=== PATIENT | male | born 1985 | race Caucasian/White ===

== ENCOUNTER 2017-08-12 20:02 | Emergency (ER) | payer OTHER, SELFPAY ==
[2017-08-12 20:28] VITALS: BP 158/91; PULSE 97; RESP 18; TEMP 36.6; O2SAT 97; BMI 32.1
--- NOTE | 2017-08-12 20:34 | CT_ITS ---
CT abdomen pelvis wo con CLINICAL INDICATION: Left flank pain, abdominal pain ITS.REASON: LEFT FLANK PAIN ORDERING PHYSICIAN: Star Boswell MD PATIENT AGE: 32 years COMPARISON: None TECHNIQUE: Axial images obtained with sagittal and coronal reformats. PROCEDURE: Oral Contrast: None IV Contrast: None . FINDINGS: No acute finding in the lung bases. Diffuse fatty liver. Mild splenomegaly at 15 cm. The gallbladder, pancreas, and adrenal glands are unremarkable. There is a 22 x 16 mm left renal calculus within the left renal pelvis at the ureteropelvic junction causing mild left-sided hydronephrosis. There is mild stranding of the left perinephric renal fat. There is some lobulation of the right kidney with scarring along the lower pole and mild prominence of the right renal pelvis and ureter but with no stones evident on the right. No intestinal obstruction or free air. Unremarkable appendix. No acute bony anomalies. Disc osteophyte complex is present at T12-L1 slightly eccentric toward the left. IMPRESSION: 1. 22 x 16 mm left ureteropelvic junction stone with mild left-sided hydronephrosis and stranding in the left perinephric renal fat. 2. Diffuse hepatic steatosis. 3. Disc osteophyte complex at T12-L1 slightly eccentric toward the left
[2017-08-12 20:55] LABS: Microscopic, Urine URINE MICROSCOPIC (MICROSCOPIC)
[2017-08-12 20:56] LABS: Basophils # 0.1 K/mm3 (0-0.2); Basophils % 0.5 % (0.1-2.0); Eosinophils # 0.1 K/mm3 (0.0-0.4); Eosinophils % 1.2 % (0.1-12.0); Hematocrit 48.3 % (42.0-52.0); Hemoglobin 16.4 g/dL (14.1-18.0); Lymphocytes # 1.9 K/mm3 (0.7-4.5); Lymphocytes % 16.3 K/mm3 (10-50); Mean Corpuscular Hemoglobin 28.2 pg (27.0-31.2); Mean Corpuscular Volume 83.1 fl (80-94); Mean Platelet Volume 6.8 fl (7.4-10.4); Monocytes # 0.7 K/mm3 (0.1-1.0); Monocytes % 6.1 % (1.7-9.3); Platelet Count 277 K/mm3 (142-424); Red Blood Count 5.81 M/mm3 (4.60-6.20); Red Cell Distribution Width 12.3 % (11.5-17.5); White Blood Count 11.9 K/mm3 (4.8-10.8)
[2017-08-12 21:09] LABS: Alanine Aminotransferase 105 U/L (12-78); Albumin Level 4.3 gm/dL (3.4-5.0); Albumin/Globulin Ratio 1.2 (1.1-1.8); Alkaline Phosphatase 136 U/L (46-116); Anion Gap 13.9 mEq/L (5-15); Aspartate Amino Transferase 42 U/L (15-37); Bilirubin,Total 0.8 mg/dL (0.2-1.0); Blood Urea Nitrogen 15 mg/dL (7-18); Calcium 9.3 mg/dL (8.5-10.1); Carbon Dioxide 29 mmol/L (21.0-32.0); Chloride 98 mmol/L (98-107); Creatinine Clearance Estimated 95 mL/min (0-300); Creatinine,Serum 1.81 mg/dL (0.70-1.30); Estimated Glomerular Filt Rate 44 ml/min (>60); GFR (African American) 53 ML/MIN (>60); Globulin 3.5 gm/dl (1.3-3.2); Glucose 147 mg/dL (74-106); Potassium 3.9 mmoL/L (3.5-5.1); Sodium 137 mmol/L (136-145); Total Protein,Serum 7.8 gm/dL (6.4-8.2)
[2017-08-12 21:10] LABS: Appearance,Urine CLEAR (Clear); Bilirubin,Urine Negative (Negative); Blood, Urine TRACE-I (Negative); Color,Urine YELLOW (Yellow); Glucose,Urine (UA) Negative (Negative); Ketones,Urine Negative (Negative); Leukocyte Esterase,Urine TRACE (Negative); Nitrate,Urine Negative (Negative); PH,Urine 6.5 (5.0-8.5); Protein,Urine Negative (Negative); Urobilinogen,Urine 0.2 EU/dl (0.2)
--- NOTE | 2017-08-12 21:12 | PC.NURSE ---
PATIENT REPORTS NO PAIN AT THIS TIME
[2017-08-12 21:44] LABS: Bacteria,Urine 1+ /lpf; Squamous Epithelial Cell,Urine Occasional #/hpf (0-5)
[2017-08-12 21:45] LABS: Mucus,Urine 1+ /lpf
--- NOTE | 2017-08-12 21:54 | HMH.EDUROGM ---
ED Disposition Clinical Impression: Renal colic on left side Disposition: Home, Self-Care Condition on Discharge: Good Instructions: Kidney Stones -- Adult Additional Instructions: call pcp and urology in am Referrals: Al Morales MD [Primary Care Provider] - Trent Torres MD [Staff Physician] - - Critical Care Critical Care Time: No Attestation: On 08/12/17, the high probability of a clinically significant, sudden or life threatening deterioration of the following system(s) required my full and direct attention, intervention and personal management. The time I documented below is in addition to time spent performing reported procedures but includes the following listed in this critical care notation. Medical Decision Making - Medical Records Medical records reviewed: Yes: I reviewed the patient's medical records. Vital Signs: 08/12/17 20:28 Temperature 97.8 F Temperature Source Oral Pulse Rate [Right Brachial] 97 H Respiratory Rate 18 Blood Pressure [Right Arm] 158/91 Blood Pressure Mean [Right Arm] 113 Blood Pressure Source [Right Arm] Automatic Cuff Blood Pressure Position [Right Arm] Sitting 02 Sat by Pulse Oximetry 97 Oxygen Delivery Method Room Air - Lab Data Lab results reviewed: Yes: I reviewed the patient's lab results. Lab Results 08/12/17 20:40: Urine Color Yellow, Urine Appearance Clear, Urine pH 6.5, Ur Specific [place] 1.010, Urine Protein Negative, Urine Glucose (UA) Negative, Urine Ketones Negative, Urine Blood Trace-i, Urine Nitrate Negative, Urine Bilirubin Negative, Urine Urobilinogen 0.2, Ur Leukocyte Esterase Trace, Urine RBC 10-20, Urine WBC 3-5, Ur Squamous Epith Cells Occasional, Urine Bacteria 1+, Urine Mucus 1+ 08/12/17 20:40: WBC 11.9 H, RBC 5.81, Hgb 16.4, Hct 48.3, MCV 83.1, MCH 28.2, MCHC 34.0, RDW 12.3, Plt Count 277, MPV 6.8 L, Neut % (Auto) 76.0, Lymph % (Auto) 16.3, [place] % (Auto) 6.1, Eos % (Auto) 1.2, Baso % (Auto) 0.5, Neut # (Auto) 9.0 H, Lymph # (Auto) 1.9, [place] # (Auto) 0.7, Eos # (Auto) 0.1, Baso # (Auto) 0.1 08/12/17 20:40: Sodium 137, Potassium 3.9, Chloride 98, Carbon Dioxide 29, Anion Gap 13.9, BUN 15, Creatinine 1.81 H, Estimated Creat Clear 95, Estimated GFR 44 L, Est GFR ( Amer) 53 L, Glucose 147 H, Calcium 9.3, Total Bilirubin 0.8, AST 42 H, ALT 105 H, Alkaline Phosphatase 136 H, Total Protein 7.8, Albumin 4.3, Globulin 3.5 H, Albumin/Globulin Ratio 1.2 Result diagrams: 08/12/17 20:40 08/12/17 20:40 Orders (Tests/Meds): ED MEDICATIONS Discontinued Medications Generic Name Dose Route Start Last Admin Trade Name Freq PRN Reason Stop Dose Admin Sodium Chloride 1,000 mls @ 999 mls/hr 08/12/17 20:45 08/12/17 20:40 Sod Chlor 0.9% 1000ml Bag IV 08/12/17 21:45 999 mls/hr .Q1H1M NETO Administration Ketorolac Tromethamine 30 mg 08/12/17 20:36 08/12/17 20:40 Toradol 30mg/Ml Vial IV 08/12/17 20:37 30 mg ONCE ONE Administration ORDERS Category Date Time Status CT abdomen pelvis wo con Stat Cat Scan 08/12/17 20:34 Taken - CT Data CT Scan: Abdomen, Pelvis Time Received: 21:[address] Reviewed: Yes: I have viewed the radiologist's interpretation Preliminary Findings: Abnormal (lt stone) - Marky Inquiry Pt receiving controlled substance: No Male Urogenital HPI - General Chief complaint: Abdominal Pain Stated complaint: sharp pain left side&back Time Seen by Provider: 08/12/17 21:54 Mode of Arrival: Ambulatory Source of Information: Patient, Medical Record Limitations: No Limitations Description of Symptoms (Recalled from ER Triage Doc. by RN): LEFT FLANK PAIN RADIATING TO LLQ AND GROIN - History of Present Illness HPI Narrative: pt with lt flank pain which started today Onset (ago): hour(s) Duration: intermittent Location: left flank Severity: moderate Quality: dull - Related Data Allergies Allergy/AdvReac Type Severity Reaction Status Date / Time No Known Allergies Allergy
--- NOTE | 2017-08-12 21:57 | ED_ITS ---
ED Disposition Clinical Impression: Renal colic on left side Disposition: Home, Self-Care Condition on Discharge: Good Instructions: Kidney Stones -- Adult Additional Instructions: call pcp and urology in am Referrals: Al Morales MD [Primary Care Provider] - Trent Torres MD [Staff Physician] - - Critical Care Critical Care Time: No Attestation: On 08/12/17, the high probability of a clinically significant, sudden or life threatening deterioration of the following system(s) required my full and direct attention, intervention and personal management. The time I documented below is in addition to time spent performing reported procedures but includes the following listed in this critical care notation. Medical Decision Making - Medical Records Medical records reviewed: Yes: I reviewed the patient's medical records. Vital Signs: 08/12/17 20:28 Temperature 97.8 F Temperature Source Oral Pulse Rate [Right Brachial] 97 H Respiratory Rate 18 Blood Pressure [Right Arm] 158/91 Blood Pressure Mean [Right Arm] 113 Blood Pressure Source [Right Arm] Automatic Cuff Blood Pressure Position [Right Arm] Sitting 02 Sat by Pulse Oximetry 97 Oxygen Delivery Method Room Air - Lab Data Lab results reviewed: Yes: I reviewed the patient's lab results. Lab Results 08/12/17 20:40: Urine Color Yellow, Urine Appearance Clear, Urine pH 6.5, Ur Specific [place] 1.010, Urine Protein Negative, Urine Glucose (UA) Negative, Urine Ketones Negative, Urine Blood Trace-i, Urine Nitrate Negative, Urine Bilirubin Negative, Urine Urobilinogen 0.2, Ur Leukocyte Esterase Trace, Urine RBC 10-20, Urine WBC 3-5, Ur Squamous Epith Cells Occasional, Urine Bacteria 1+ , Urine Mucus 1+ 08/12/17 20:40: WBC 11.9 H, RBC 5.81, Hgb 16.4, Hct 48.3, MCV 83.1, MCH 28.2, MCHC 34.0, RDW 12.3, Plt Count 277, MPV 6.8 L, Neut % (Auto) 76.0, Lymph % (Auto ) 16.3, [place] % (Auto) 6.1, Eos % (Auto) 1.2, Baso % (Auto) 0.5, Neut # (Auto) 9.0 H, Lymph # (Auto) 1.9, [place] # (Auto) 0.7, Eos # (Auto) 0.1, Baso # (Auto) 0.1 08/12/17 20:40: Sodium 137, Potassium 3.9, Chloride 98, Carbon Dioxide 29, Anion Gap 13.9, BUN 15, Creatinine 1.81 H, Estimated Creat Clear 95, Estimated GFR 44 L, Est GFR ( Amer) 53 L, Glucose 147 H, Calcium 9.3, Total Bilirubin 0.8, AST 42 H, ALT 105 H, Alkaline Phosphatase 136 H, Total Protein 7.8, Albumin 4.3, Globulin 3.5 H, Albumin/Globulin Ratio 1.2 Result diagrams: 08/12/17 20:40 08/12/17 20:40 Orders (Tests/Meds): ED MEDICATIONS Discontinued Medications Generic Name Dose Route Start Last Admin Trade Name Freq PRN Reason Stop Dose Admin Sodium Chloride 1,000 mls @ 999 mls/hr 08/12/17 20:45 08/12/17 20:40 Sod Chlor 0.9% 1000ml Bag IV 08/12/17 21:45 999 mls/hr .Q1H1M NETO Administration Ketorolac Tromethamine 30 mg 08/12/17 20:36 08/12/17 20:40 Toradol 30mg/Ml Vial IV 08/12/17 20:37 30 mg ONCE ONE Administration ORDERS Category Date Time Status CT abdomen pelvis wo con Stat Cat Scan 08/12/17 20:34 Taken - CT Data CT Scan: Abdomen, Pelvis Time Received: 21:[address] Reviewed: Yes: I have viewed the radiologist's interpretation Preliminary Findings: Abnormal (lt stone) - Marky Inquiry Pt receiving controlled substance: No Male Urogenital HPI - General Chief complai
[2017-08-12 22:08] VITALS: BP 151/89; PULSE 79; RESP 16; TEMP 36.6; O2SAT 97
== END 2017-08-12 22:09 | disposition home or self-care (01) ==
LOC: UTC 20:14 → ER 20:24
PROVIDERS: Emergency Provider Emergency Medicine; Family Provider Family Medicine; PCP Internal Medicine Adolescent Medicine
DX: N23 Unspecified renal colic (principal); R73.09 Other abnormal glucose
CPT/HCPCS: 74176; 80053; 81001; 85025; 96365; 96374; 96375; 99282

== ENCOUNTER 2017-09-24 09:05 | Day surgery (SDC) | payer OTHER, SELFPAY ==
[2017-09-23 14:42] VITALS: BMI 32.1
[2017-09-24 10:14] VITALS: BP 130/86; PULSE 66; RESP 18; TEMP 36.4; O2SAT 99
--- NOTE | 2017-09-24 14:16 | HMH.OPNOTE ---
Date of procedure: 09/24/17 Pre-op Diagnosis:: Renal calculus Post-op Diagnosis:: Same Procedure performed:: Flexible cystoscopy and left ureteral stent removal Surgeon:: Trent Torres MD Anesthesia: local Estimated blood loss (mL): 0 Clinical Note:: Patient had recent left PCNL and he presents today for cystoscopy and removal of left ureteral stent Operative findings:: Is placed in the supine position. The genital area was prepped and draped in standard fashion. Xylocaine jelly was instilled in the urethra. Flexible cystoscope was introduced. The urethra and prostate were unremarkable. The stent was visualized and grasped with the alligator forceps and removed without difficulty. Patient tolerated procedure well. Operative note:: As above Condition: stable Disposition: PACU Specimens:: None Complications:: None
[2017-09-24 15:37] VITALS: BP 156/99; PULSE 68; RESP 18; TEMP 36.7; O2SAT 99
[2017-09-24 15:38] VITALS: BP 156/99; PULSE 68; RESP 18; TEMP 36.7; O2SAT 99
== END 2017-09-24 11:25 | disposition home or self-care (01) ==
LOC: OUTP 09:06
PROVIDERS: Family Provider Family Medicine; PCP Internal Medicine Adolescent Medicine; Visit Provider Urology
PROC: (CPT 52310; principal; 2017-09-24 10:30)
DX: N20.0 Calculus of kidney (principal)
CPT/HCPCS: 52310

== ENCOUNTER → 2021-07-25 20:09 | Outpatient (CLI) | payer OTHER, SELFPAY | PROVIDERS: Visit Provider Nurse Practitioner Family | DX: U07.1 COVID-19 (principal) | CPT/HCPCS: C9803; U0003; U0005 ==

== ENCOUNTER 2023-09-14 05:08 | Emergency (ER) | payer BC, SELFPAY ==
--- NOTE | 2023-09-14 05:19 | CT_ITS ---
PROCEDURE INFORMATION: Exam: CT Abdomen And Pelvis With Contrast Exam date and time: 09/14/2023 5:32 AM Age: 38 years old Clinical indication: Fever and other: Dysuria; Additional info: Dysuria, fevers, n, HX nephrolithiasis ? pyelo TECHNIQUE: Imaging protocol: Computed tomography of the abdomen and pelvis with contrast. Radiation optimization: All CT scans at this facility use at least one of these dose optimization techniques: automated exposure control; mA and/or kV adjustment per patient size (includes targeted exams where dose is matched to clinical indication); or iterative reconstruction. Contrast material: ISOVUE; Contrast volume: 75 ml; Contrast route: IV; COMPARISON: ABDPELWO CT abdomen pelvis wo con 08/12/2017 8:47 PM FINDINGS: Lungs: Right lower lobe granuloma. Heart: Base of heart is unremarkable as visualized. Liver: Diffuse hepatic steatosis. Gallbladder and bile ducts: Normal. No calcified stones. No ductal dilation. Pancreas: Mild fatty atrophy of the pancreas. Spleen: Benign calcified splenic granulomas noted. Adrenal glands: Normal. No mass. Kidneys and ureters: There is asymmetric left perinephric stranding. Subtle regions of left upper and left lower renal pole wedge like hypodensities are noted. Similar-appearing regions of cortical atrophy of the right lower renal pole are noted. Similar dilation of the right renal pelvis is noted. On today's examination there is slight thickening of the urothelium of the right renal pelvis. New from prior comparison on 08/12/2017 is a right lower renal pole nonobstructive nephrolith. Stomach and bowel: Unremarkable. No obstruction. No mucosal thickening. Appendix: No evidence of appendicitis. Intraperitoneal space: Unremarkable. No free air. No significant fluid collection. Vasculature: Normal variant celiac/SMA arterial anatomy. Lymph nodes: Unremarkable. No enlarged lymph nodes. Urinary bladder: Bladder is decompressed with circumferential wall thickening. Reproductive: Unremarkable as visualized. Bones/joints: [id number] degenerative changes of the visualized osseous structures. Soft tissues: Unremarkable. IMPRESSION: 1. Findings suggestive of left pyelonephritis without rim enhancing fluid collection. Correlate with laboratory findings. 2. Right nonobstructive lower renal pole nephrolithiasis. 3. Additional nonacute findings as above. COMMENTS: Consistent with the [employer]'s Incidental Findings Committee white paper (J Am Floyd Radiol 2018): Any incidental renal lesion less than 1 cm or classified as too small to characterize, or any incidental cystic renal lesion characterized as simple-appearing, is likely benign. No follow-up imaging is recommended for these lesions per consensus recommendations based on imaging criteria.
--- NOTE | 2023-09-14 05:22 | ED_ITS ---
Discharge Plan Disposition Patient Disposition: Home, Self-Care Condition: Good Prescriptions Prescriptions: New ciprofloxacin HCl [Cipro] 500 mg tablet 500 mg PO Q12H Qty: 20 0RF ondansetron 4 mg tablet,disintegrating 4 mg PO Q8H PRN (Reason: nausea and vomiting) Qty: 12 0RF Referrals Follow up/Referrals: Asif Newman MD [Primary Care Provider] - See instructions Activity Restrictions/Add. Instructions Additional Instructions/Restrictions: Take ciprofloxacin antibiotic as prescribed and you can take Zofran for any nausea or vomiting. You can continue to take Tylenol and Motrin for fevers and follow-up closely with your primary care provider for continued management. If your symptoms worsen, you continue to have fevers, he cannot tolerate oral intake or any other concerns arise please do not hesitate to return to the emergency department. Clinical Impressions Clinical Impression: Acute pyelonephritis Instructions Patient Instructions: DI for Urinary Tract Infection (UTI), DI for Urinary Tract Infection in Children Discharge ED Provider: Rhoda Thompson Adult HPI General Chief complaint: Urogenital-Male Stated complaint: 105.8 fever, sweats, chills, cloudy urine Time Seen by Provider: 09/14/23 05:12 History of Present Illness HPI narrative: Patient is a 38-year-old male with past medical history nephrolithiasis and anxiety presenting with dysuria, fevers, chills. Patient states that his symptoms started yesterday. He has had fever to 105 reportedly for which he has been taking Tylenol and Motrin at home last dose was 1 hour prior to arrival. Patient does note he has dysuria during this time and has had cloudy urine for the past couple of weeks, has a history of nephrolithiasis requiring urological intervention 5 years ago and wonders if he could have a kidney stone though he denies any flank pain. He woke up nauseated and with diaphoresis this morning prompting presentation. His family at bedside does note that he has had a cough but he denies any congestion or known sick contacts, chest pain, shortness of breath. Related Data Previous Rx's Medication Instructions Recorded ciprofloxacin HCl 500 mg tablet 500 mg PO Q12H #20 tabs 09/14/23 (Cipro) ondansetron 4 mg disintegrating 4 mg PO Q8H PRN nausea and 09/14/23 tablet vomiting #12 tabs Allergies Allergy/AdvReac Type Severity Reaction Status Date / Time No Known Allergies Allergy Verified 05/31/23 12:11 [facility] Disclaimer: The information contained in this section may have been updated after the patient was seen, as this information can be updated by other users. Medical History (Updated 09/14/23 @ 06:45 by Rhoda Thompson MD) Generalized anxiety disorder History of kidney stones Hypertension Surgical History History of tonsillectomy Social History Smoking Status: Never smoker how long ago did patient quit smokin years ago; moved to a vape second hand exposure: No alcohol intake: current counseling given: No substance use type: denies use current occupational status: employed Travel in the last 8 weeks: None adopted: No caregiver/support person: No foster care: No household members: family housing: house lives independently: Yes marital status: number of children: 3 number of grandchildren: 0 education level: high school service: No skilled nursing: No current occupation: at the [employer] Hx Recent Travel: No sexually active: Yes working smoke detector in home: Yes fire extinguisher in home: Yes carbon monox detector in home: No firearms in home: Yes firearms unloaded and locked: Yes ROS Obtained: Yes Systems reviewed as appropriate & no additional complaints except as documented Physical Exam General General appearance: alert, in no apparent distress and other (Diaphoretic) Head Head exam: atraumatic and normocephalic Eye Eye exam: Present PERRL and EOMI Chest Chest inspection: Present normal inspection and symmetric chest wall rise Respiratory Respiratory exam: Present normal lung sounds bilaterally; Absent respiratory distress Cardiovascular Cardiovascular exam: Present regular rate and normal rhythm Abdominal Exam Abdominal exam: Present soft and other (No CVA tenderness); Absent distention or tenderness Extremities Exam Extremities exam: Present normal inspection Neurological Exam Neurological exam: Present alert and oriented X3 Skin Skin exam: Present dry, normal color and diaphoresis; Absent rash or cyanosis Medical Decision Making Medical Records Medical records reviewed: Yes I reviewed the patient's medical records. Marky Inquiry Pt receiving controlled substance: No Vital Signs: 09/14/23 05:30 09/14/23 05:45 09/14/23 06:00 Temperature 98.6 F Temperature Source Oral Pulse Rate 95 H 90 Pulse Rate [Left Radial] 120 H Respiratory Rate 18 19 Blood Pressure 154/77 H 133/74 Blood Pressure [Right Arm] 162/91 H Blood Pressure Mean 102 92 Blood Pressure Mean [Right Arm] 114 02 Sat by Pulse Oximetry 96 95 92 L Oxygen Delivery Method Room Air Room Air 09/14/23 06:30 Temperature Temperature Source Pulse Rate 88 Pulse Rate [Left Radial] Respiratory Rate 18 Blood Pressure 130/82 Blood Pressure [Right Arm] Blood Pressure Mean 95 Blood Pressure Mean [Right Arm] 02 Sat by Pulse Oximetry 93 L Oxygen Delivery Method Room Air Lab Data Lab results reviewed: Yes I reviewed the patient's lab results. Lab Results 09/14/23 05:16: Urine Color Yellow, Urine Appearance Cloudy, Urine pH 6.0, Ur Specific [place] 1.020, Urine Protein 1+, Urine Glucose (UA) 3+, Urine Ketones 1+, Urine Blood 2+, Urine Nitrate Positive, Urine Bilirubin Negative, Urine Urobilinogen 1.0, Ur Leukocyte Esterase 1+ A, Urine RBC Occasional, Urine WBC Tntc, Ur Squamous Epith Cells 3-5, Urine Bacteria 2+, Hyaline Casts Occasional 09/14/23 05:25: WBC 15.1 H, RBC 5.73, Hgb 16.9, Hct 50.3, MCV 87.7, MCH 29.5, MCHC 33.7, RDW 13.1, Plt Count 232, MPV 7.4, Neut % (Auto) 89.4 H, Lymph % (Auto) 4.8 L, [place] % (Auto) 4.1, Eos % (Auto) 1.0, Baso % (Auto) 0.7, Neut # (Auto) 13.5 H, Lymph # (Auto) 0.7, [place] # (Auto) 0.6, Eos # (Auto) 0.2, Baso # (Auto) 0.1, Total Counted 100, Neutrophils % (Manual) 90 H, Lymphocytes % (Manual) 6 L, Monocytes % (Manual) 4, Platelet Estimate Normal, RBC Morphology Normal, Sodium 132 L, Potassium 3.7, Chloride 97 L, Carbon Dioxide 24, Anion Gap 14.7, BUN 14, Creatinine 1.40 H, Estimated Creat Clear 111, Estimated GFR 57 L, Est GFR ( Amer) 69, Glucose 315 H, Calcium 9.6, Total Bilirubin 2.1 H, A ST 66 H, ALT 78, Alkaline Phosphatase 164 H, Total Protein 7.3, Albumin 4.3, Globulin 3.0, Albumin/Globulin Ratio 1.4 09/14/23 05:44: SARS-CoV-2 (PCR) Not detected, Influenza A Untype (PCR) Not detected, Influenza Type B (PCR) Not detected 09/14/23 05:25 09/14/23 05:25 Orders (Tests/Meds): ED MEDICATIONS Generic Name Dose Route Start Last Admin Trade Name Freq PRN Reason Stop Dose Admin Sodium Chloride 10 ml 09/14/23 05:19 Sodium Chloride 0.9% 10ml Flush Syringe IV 10/14/23 05:18 NEEDED PRN Maintain IV Site Discontinued Medications Generic Name Dose Route Start Last Admin Trade Name Freq PRN Reason Stop Dose Admin Sodium Chloride 1,000 mls @ 999 mls/hr 09/14/23 05:30 09/14/23 05:37 Sod Chlor 0.9% 1000ml Bag IV 09/14/23 06:30 999 mls/hr .Q1H1M NETO Administration Ceftriaxone Sodium 1 gm/ 50 mls @ 100 mls/hr 09/14/23 05:45 09/14/23 05:50 Sodium Chloride IV 09/24/23 05:44 100 mls/hr Q24H NETO Administration Ceftriaxone Sodium 1 gm/ 50 mls @ 100 mls/hr 09/14/23 05:52 09/14/23 06:01 Sodium Chloride IV 09/14/23 06:14 Not Given ONCE ONE Iopamidol 75 ml 09/14/23 05:38 09/14/23 05:39 Iopamidol-370 (76%);100ml Bottle IV 09/14/23 05:39 75 ml ONCE ONE Administration Ketorolac Tromethamine 15 mg 09/14/23 05:19 09/14/23 05:37 Ketorolac 30mg/Ml Vial IV 09/14/23 05:20 15 mg ONCE ONE Administration Sodium Chloride 10 ml 09/14/23 05:38 09/14/23 05:39 Sodium Chloride 0.9% 10ml Syr (Rad Only) IV 09/14/23 05:39 10 ml ONCE ONE Administration ORDERS Category Date Time Status CT abdomen pelvis w con Stat Cat Scan 09/14/23 05:19 Completed Complete Blood Count Auto Diff Stat Lab 09/14/23 05:25 Completed Comprehensive Metabolic Panel Stat Lab 09/14/23 05:25 Completed Rapid PCR Covid and Flu A/B Stat Lab 09/14/23 05:44 Completed Urinalysis and Microscopic Stat Lab 09/14/23 05:16 Completed Urine Culture Stat Micro 09/14/23 05:16 Received Medical Decision Narrative: Patient is a 38-year-old male with past medical history nephrolithiasis 5 years ago and anxiety presenting with fevers, chills and dysuria. He does report some cloudy urine over the past couple of weeks but reports 1 day history of fevers, myalgias, dysuria with reported Tmax to 105. He is concerned that he may have a kidney stone again but denies any pain only dysuria. He does not have any CVA tenderness or abdominal tenderness on exam but is diaphoretic though he is afebrile and it is noted he took antipyretics 1 hour prior to arrival. He is otherwise hemodynamically stable though slightly tachycardic. He denies any cough or congestion but family at bedside does state he has had a cough. Will obtain labs and imaging for further evaluation considering his dysuria and history. UA does appear grossly infectious, CBC notable for leukocytosis to 15, CMP with creatinine slightly elevated to 1.4, glucose of 315 but anion gap within normal limits, bilirubin slightly elevated to 2.1, he is not having any right upper quadrant abdominal pain and feel this could be relative to nausea/decreased p.o. intake. He did have resolution of tachycardia after fluids and Toradol and CT was notable for left-sided uncomplicated pyelonephritis. Given hemodynamic stability, improvement after interventions and that he was given 1 g of Rocephin IV feel patient is appropriate for outpatient follow-up with prescription for ciprofloxacin and Zofran provided. Patient agreeable with plan and follow-up closely outpatient as well as given return precautions to which she is agreeable. Discharged in stable condition. Critical Care Critical Care Time Critical Care Time: No
[2023-09-14 05:30] VITALS: BP 162/91; PULSE 120; RESP 18; TEMP 37; O2SAT 96; BMI 30.8
[2023-09-14 05:30] LABS: Microscopic, Urine URINE MICROSCOPIC (MICROSCOPIC)
[2023-09-14 05:31] LABS: Appearance,Urine CLOUDY (Clear); Bilirubin,Urine Negative (Negative); Blood, Urine 2+ (Negative); Color,Urine YELLOW (Yellow); Glucose,Urine (UA) 3+ (Negative); Ketones,Urine 1+ (Negative); Leukocyte Esterase,Urine 1+ (Negative); Nitrate,Urine POSITIVE (Negative); Protein,Urine 1+ (Negative)
[2023-09-14 05:34] LABS: Basophils # 0.1 K/mm3 (0-0.2); Basophils % 0.7 % (0.1-2.0); Eosinophils # 0.2 K/mm3 (0.0-0.4); Hematocrit 50.3 % (42.0-52.0); Hemoglobin 16.9 g/dL (14.1-18.0); Lymphocytes # 0.7 K/mm3 (0.7-4.5); Lymphocytes % 4.8 % (10-50); Mean Corpuscular HGB Conc 33.7 g/dL (31.8-35.4); Mean Corpuscular Hemoglobin 29.5 pg (27.0-31.2); Mean Corpuscular Volume 87.7 fl (80-94); Mean Platelet Volume 7.4 fl (7.4-10.4); Monocytes # 0.6 K/mm3 (0.1-1.0); Monocytes % 4.1 % (1.7-9.3); Neutrophils # 13.5 K/mm3 (1.8-7.8); Neutrophils % 89.4 % (37.0-80.0); Platelet Count 232 K/mm3 (142-424); Red Blood Count 5.73 M/mm3 (4.60-6.20); Red Cell Distribution Width 13.1 % (11.5-17.5); White Blood Count 15.1 K/mm3 (4.8-10.8)
[2023-09-14 05:36] LABS: MANUAL DIFFERENTIAL MANUAL DIFFERENTIAL (MANUAL DIFF)
[2023-09-14] MEDS: KETOROLAC 30MG/ML VIAL 15 MG IV (05:37)
[2023-09-14] MEDS: 0.9 % SODIUM CHLORIDE 1000ML 1,000 ML 999 ML IV (05:37)
[2023-09-14] MEDS: SODIUM CHLORIDE 0.9% 10ML SYR (RAD ONLY) 10 ML IV (05:39)
[2023-09-14] MEDS: IOPAMIDOL-370 (76%);100ML BOTTLE 75 ML IV (05:39)
[2023-09-14 05:43] LABS: Bacteria,Urine 2+ /lpf; Hyaline Casts,Urine Occasional #/lpf (0); RBC,Urine Occasional #/hpf (0-3); WBC,Urine TNTC #/hpf (0-3)
[2023-09-14 05:45] VITALS: BP 154/77; PULSE 95; O2SAT 95
[2023-09-14 05:45] LABS: Lymphocytes % 6 % (10-50); Monocytes % 4 % (2-9); Neutrophils % 90 % (42-76); Platelet Estimate Normal; RBC Morphology Normal; Total Cells Counted 100
[2023-09-14 05:46] LABS: Coronavirus 19, PCR Not Detected (NotDetected); Influenza A, PCR Not Detected (NotDetected); Influenza B, PCR Not Detected (NotDetected)
[2023-09-14 05:47] LABS: Alanine Aminotransferase 78 U/L (12-78); Albumin Level 4.3 g/dl (3.5-5.0); Albumin/Globulin Ratio 1.4 (1.1-1.8); Alkaline Phosphatase 164 U/L (38-126); Anion Gap 14.7 mEq/L (5-15); Aspartate Amino Transferase 66 U/L (17-59); Bilirubin,Total 2.1 mg/dl (0.2-1.3); Blood Urea Nitrogen 14 mg/dl (9-20); Calcium 9.6 mg/dl (8.4-10.2); Carbon Dioxide 24 mmol/L (22.0-30.0); Chloride 97 mmol/L (98-107); Creatinine Clearance Estimated 111 mL/min (50-200); Estimated Glomerular Filt Rate 57 ml/min (>60); GFR (African American) 69 ML/MIN (>60); Glucose 315 mg/dl (74-100); Potassium 3.7 mmoL/L (3.5-5.1); Sodium 132 mmol/L (136-145); Total Protein,Serum 7.3 g/dl (6.3-8.2)
[2023-09-14] MEDS: CEFTRIAXONE 1 GM 1 GM in 0.9 % SODIUM CHLORIDE 50 ML IV (05:50)
[2023-09-14 06:00] VITALS: BP 133/74; PULSE 90; RESP 19; O2SAT 92
[2023-09-14 06:30] VITALS: BP 130/82; PULSE 88; RESP 18; O2SAT 93
[2023-09-14 06:49] VITALS: BP 130/82; PULSE 83; RESP 18; TEMP 37.2
== END 2023-09-14 06:54 | disposition home or self-care (01) ==
PROVIDERS: Emergency Provider Emergency Medicine; PCP Family Medicine
DX: N10 Acute pyelonephritis (principal); R50.9 Fever, unspecified; R33.0 Drug induced retention of urine; R05.9 Cough, unspecified; I10 Essential (primary) hypertension; F17.290 Nicotine dependence, other tobacco product, uncomplicated
CPT/HCPCS: 74177; 80053; 81001; 85007; 85025; 87086; 87636; 96361; 96365; 96375; 99285; J0696; Q9967

== ENCOUNTER 2023-09-15 03:16 | Observation (INO) | payer BC, SELFPAY ==
[2023-09-15] VITALS (12 sets, daily range): BP systolic 111–150; BP diastolic 64–89; PULSE 72–135; RESP 16–20; TEMP 36.6–37.1; O2SAT 95–99; BMI 30.8; BMI 28.9; BMI 29.0
[2023-09-15] MEDS: KETOROLAC 30MG/ML VIAL 15 MG IV ×3 (03:33→21:05)
[2023-09-15] MEDS: ACETAMINOPHEN 1,000MG/100ML VIAL 1000 MG IV (03:33)
[2023-09-15] MEDS: ONDANSETRON 4MG/2ML VIAL 4 MG IV (03:33)
--- NOTE | 2023-09-15 03:34 | ED_ITS ---
Discharge Plan Disposition Patient Disposition: Admitted Chief Complaint: Fever Prescriptions Prescriptions: No Action ciprofloxacin HCl [Cipro] 500 mg tablet 500 mg PO Q12H Qty: 20 0RF ondansetron 4 mg tablet,disintegrating 4 mg PO Q8H PRN (Reason: nausea and vomiting) Qty: 12 0RF Referrals Follow up/Referrals: Asif Newman MD [Primary Care Provider] - See instructions Clinical Impressions Clinical Impression: Acute pyelonephritis, Sepsis Discharge ED Provider: Alexis Wing General Adult HPI General Chief complaint: Fever Stated complaint: fever of 103 kidney infection Time Seen by Provider: 09/15/23 03:18 Mode of Arrival: Ambulatory Source of Information: Patient Limitations: No Limitations Description of Symptoms (Recalled from ER Triage Doc. by RN): Pt dx with kidney infection 09/13. Pt states he is still having a fever. Pt did not have a fever during triage. History of Present Illness HPI narrative: 38-year-old man history of numerous bladder and kidney infections as a child without over diagnosis or causative pathology presenting with fevers and vomiting. Patient was diagnosed with pyelonephritis early in the morning yesterday, 09/13 in the AM. Was given first dose of ceftriaxone, sent home with ciprofloxacin. Patient states that all day long, he has been unable to tolerate any p.o. intake, notes constant vomiting with any attempted p.o. intake. Also notes that he has been having a twinge every now and again, in his left flank. Patient has had fevers that are responsive to Motrin, has not been taking Tylenol. Urine is dark orange/red and is associated with dysuria. Unable to tolerate antibiotic or Zofran today. Presents for further medical evaluation Please note that above description of symptoms, in this electronic medical record under categorization of recalled from ER triage doctor by RN are reflective of an initial nursing assessment, however, is not reflective of my full history and physical exam that was personally taken and clarified. Consequentially, this preceding description of symptoms, which may include the patient's categorized chief complaint in the EMR, do not reflect my personal clinical impression, and the ultimate description of history of present illness and patient stated complaints should be deferred to this section of the note. Unless stated otherwise or congruent with this section of the note, additional signs, symptoms, or incongruence should be interpreted as inaccurate with my clinical impression. Related Data Previous Rx's Medication Instructions Recorded ciprofloxacin HCl 500 mg tablet 500 mg PO Q12H #20 tabs 09/14/23 (Cipro) ondansetron 4 mg disintegrating 4 mg PO Q8H PRN nausea and 09/14/23 tablet vomiting #12 tabs Allergies Allergy/AdvReac Type Severity Reaction Status Date / Time No Known Allergies Allergy Verified 05/31/23 12:11 [facility] Disclaimer: The information contained in this section may have been updated after the patient was seen, as this information can be updated by other users. Medical History (Updated 09/15/23 @ 04:42 by Alexis Wing MD) Generalized anxiety disorder History of kidney stones Hypertension Surgical History History of tonsillectomy Social History Smoking Status: Never smoker how long ago did patient quit smokin years ago; moved to a vape second hand exposure: No alcohol intake: current counseling given: No substance use type: denies use current occupational status: employed Travel in the last 8 weeks: None adopted: No caregiver/support person: No foster care: No household members: family housing: house lives independently: Yes marital status: number of children: 3 number of grandchildren: 0 education level: high school service: No halfway: No 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 Disheveled) Head Head exam: atraumatic and normocephalic Eye Eye exam: Present normal appearance, PERRL and EOMI ENT ENT exam: Present mucous membranes moist Neck Neck exam: Present normal inspection, full ROM and trachea midline Respiratory Respiratory exam: Present normal lung sounds bilaterally; Absent respiratory distress, wheezes, stridor, accessory muscle use or prolonged expiratory phase Cardiovascular Cardiovascular exam: Present normal rhythm and tachycardia Abdominal Exam Abdominal exam: Present soft; Absent distention, tenderness, guarding, rebound or rigidity Extremities Exam Extremities exam: Absent edema Back Exam Back exam: Absent tenderness, CVA tenderness (R) or CVA tenderness (L) Neurological Exam Neurological exam: Present alert, oriented X3, CN II-XII intact and normal gait; Absent motor sensory deficit Skin Skin exam: Present warm and dry; Absent diaphoresis or erythema Medical Decision Making Medical Records Medical records reviewed: Yes I reviewed the patient's medical records. Marky Inquiry Pt receiving controlled substance: No Marky was queried for this patient: No Vital Signs: 09/15/23 03:18 09/15/23 03:31 09/15/23 03:31 Temperature 98.2 F Temperature Source Oral Oral Pulse Rate 135 H Pulse Rate [Left] 130 H Respiratory Rate 20 Blood Pressure 126/81 Blood Pressure [Right Arm] 150/89 H Blood Pressure Mean 96 Blood Pressure Mean [Right Arm] 109 Blood Pressure Position [Right Arm] Sitting 02 Sat by Pulse Oximetry 97 99 Oxygen Delivery Method Room Air Room Air Lab Data Lab Results 09/15/23 03:40: WBC 15.1 H, RBC 5.53, Hgb 16.2, Hct 47.1, MCV 85.2, MCH 29.3, MCHC 34.4, RDW 13.0, Plt Count 213, MPV 8.1, Neut % (Auto) 88.8 H, Lymph % (Auto) 6.0 L, [place] % (Auto) 4.3, Eos % (Auto) 0.5, Baso % (Auto) 0.5, Neut # (Auto) 13.4 H, Lymph # (Auto) 0.9, [place] # (Auto) 0.6, Eos # (Auto) 0.1, Baso # (Auto) 0.1, Total Counted 100, Neutrophils % (Manual) 89 H, Lymphocytes % (Manual) 7 L, Atypical Lymphs % 3.0, Monocytes % (Manual) 1 L, Platelet Estimate Normal, RBC Morphology Normal, Sodium 132 L, Potassium 3.8, Chloride 99, Carbon Dioxide 20 L, Anion Gap 16.8 H, BUN 15, Creatinine 1.40 H, Estimated Creat Clear 111, Estimated GFR 57 L, Est GFR ( Amer) 69, Glucose 216 H D, Lactate 4.3 H, Calcium 8.8, Total Bilirubin 2.7 H, AST 81 H, ALT 125 H D, Alkaline Phosphatase 171 H, Total Creatine Kinase 70, Total Protein 7.0, Albumin 3.8 D, Globulin 3.2, Albumin/Globulin Ratio 1.2, Lipase 47, Salicylates < 1.0 L 09/15/23 03:40 09/15/23 03:40 Orders (Tests/Meds): ED MEDICATIONS Generic Name Dose Route Start Last Admin Trade Name Freq PRN Reason Stop Dose Admin Sodium Chloride 3,270 mls @ 1,635 mls/hr 09/15/23 04:23 09/15/23 04:33 Sod Chlor 0.9% 1000ml Bag 30 ml/kg infuse over 2 hr (3270 ml) 09/15/23 06:22 1,635 mls/hr IV Administration .Q2H ONE Discontinued Medications Generic Name Dose Route Start Last Admin Trade Name Freq PRN Reason Stop Dose Admin Acetaminophen 1,000 mg 09/15/23 03:19 09/15/23 03:33 Acetaminophen 1,000mg/100ml Vial IV 09/15/23 03:20 1,000 mg ONCE ONE Administration Ceftriaxone Sodium 1 gm/ 50 mls @ 100 mls/hr 09/15/23 03:19 09/15/23 03:37 Sodium Chloride IV 09/15/23 03:48 100 mls/hr ONCE ONE Administration Sodium Chloride 1,000 mls @ 999 mls/hr 09/15/23 03:29 09/15/23 04:35 Sod Chlor 0.9% 1000ml Bag IV 09/15/23 04:29 Not Given .Q1H1M ONE Ketorolac Tromethamine 15 mg 09/15/23 03:19 09/15/23 03:33 Ketorolac 30mg/Ml Vial IV 09/15/23 03:20 15 mg ONCE ONE Administration Ondansetron HCl 4 mg 09/15/23 03:28 09/15/23 03:33 Ondansetron 4mg/2ml Vial IV 09/15/23 03:29 4 mg ONCE ONE Administration ORDERS Category Date Time Status POCUS Point of Care (ER Only) Stat Exams 09/15/23 04:13 Ordered CBC w/Auto Diff [Complete Blood Count Auto Diff] Stat Lab 09/15/23 03:40 Completed CK [Creatine Kinase] Stat Lab 09/15/23 03:40 Completed CMP [Comprehensive Metabolic Panel] Stat Lab 09/15/23 03:40 Completed Lactic Acid Stat Lab 09/15/23 03:40 Completed Lipase Stat Lab 09/15/23 03:40 Completed Salicylate Stat Lab 09/15/23 03:40 Completed Blood Culture Stat Micro 09/15/23 03:45 Received Medical Decision Narrative: 38-year-old man history of numerous bladder and kidney infections as a child without over diagnosis or causative pathology presenting with fevers and vomiting. Patient was diagnosed with pyelonephritis early in the morning yesterday, 09/13 in the AM. Was given first dose of ceftriaxone, sent home with ciprofloxacin. Patient states that all day long, he has been unable to tolerate any p.o. intake, notes constant vomiting with any attempted p.o. intake. Also notes that he has been having a twinge every now and again, in his left flank. Patient has had fevers that are responsive to Motrin, has not been taking Tylenol. Urine is dark orange/red and is associated with dysuria. Unable to tolerate antibiotic or Zofran today. Presents for further medical evaluation. Patient be noted that patient has numerous urinary tract infections in the past without known causative etiology, likely urologic anatomic abnormality which is complicating care. History was obtained via conversation with patient. On arrival, patient hemodynamically stable, alert, oriented x4, appropriate, GCS 15, moving all extremities spontaneously, pupils equal and reactive to light. Full physical exam performed and significant for patient in no acute distress, but is intermittently retching. Not producing any sputum. States that he has not been producing any GI contents at home either including blood or bile. No diarrhea. Patient's abdomen is soft, nontender, nondistended. No flank tenderness. Patient is tachycardic to about 12-130 bpm, but afebrile here in the emergency department. Differential includes pyelonephritis, pancreatitis, gastritis, esophagitis, PUD, cholecystitis, nephrolithiasis, sepsis, among others. Patient was given 1 g ceftriaxone IV, acetaminophen 1 g IV, Toradol 15 mg IV, Zofran 4 mg IV for symptomatic management and correction of underlying abnormalities. Workup independently interpreted and significant for leukocytosis 15.1, similar to yesterday. NORAH with creatinine 1.4, this was also creatinine yesterday. Patient does have new anion gap of 16.8, lactate of 4. 3, and LFT elevations. Right upper quadrant bedside ultrasound was performed and insignificant. Negative sonographic Gardner sign, no pericholecystic fluid, no stones or sludge. Common bile duct within normal limits. Gallbladder measurements unconcerning. CT scan from 09/13 was independently interpreted. Patient has distended gallbladder without secondary signs of cholecystitis. Right kidney has thickened, enlarged renal pelvis with no distal stone. There is a nonobstructing intrarenal right stone. Left kidney with perinephric fat stranding concerning for pyelonephritis. No downstream stone or upstream dilation. See radiology read for full review of final results. Repeat CT of the abdomen pelvis was considered, but not deemed necessary given this is likely progression of pyelonephritis in the setting of recent antibiotic initiation. UA []. On reevaluation, patient still feeling poorly, but much better not vomiting after fluids, Zofran, Toradol, and acetaminophen. Hospital medicine was contacted and case was discussed at length. Patient meeting admission criteria due to failure of outpatient therapy and worsening of condition. Patient also would benefit from clearing blood cultures. Sepsis bolus was administered and patient was admitted. Because patient high risk for clinical decompensation, deemed appropriate for inpatient admission. Results were relayed to patient who voiced understanding and patient was agreeable to inpatient admission and management. Patient was admitted to the hospital for further definitive management. Procedures Limited Ultrasound Indication:: Limited RUQ ultrasound Indication: Nausea and vomiting, elevated LFTs Identified structures: -Gallbladder -Gallbladder wall -Common bile duct -Liver Findings: Sonographic Gardner sign: Absent Gallstones: Absent Sludge: Absent Pericholecystic fluid: Absent Maximal GB wall thickness (mm) (normal is </= 3mm): Normal Common bile duct width (mm) (normal is </= 6mm): Normal Gallbladder width (cm) (normal is < 4cm): Normal Gallbladder length (cm) (normal is < 10cm): Normal Impression: Normal gallbladder and right upper quadrant ultrasound overall Images were saved to permanent archive The study was technically adequate CPT 41476-29 This study was performed by me, and I personally interpreted all images/videos. Based on my clinical judgement, these images were adequate and did not necessitate further imaging. Critical Care Critical Care Time Critical Care Time: Yes (renal, hematologic, ID) Attestation: On 09/15/23, the high probability of a clinically significant, sudden or life threatening deterioration of the following system(s) required my full and direct attention, intervention and personal management. The time I documented below is in addition to time spent performing reported procedures but includes the following listed in this critical care notation. Total Time Total Critical Care Time: 45
[2023-09-15] MEDS: CEFTRIAXONE SODIUM 1 GM in 0.9 % SODIUM CHLORIDE 50 ML IV (03:37)
[2023-09-15 03:55] LABS: Basophils # 0.1 K/mm3 (0-0.2); Basophils % 0.5 % (0.1-2.0); Eosinophils # 0.1 K/mm3 (0.0-0.4); Eosinophils % 0.5 % (0.1-12.0); Hematocrit 47.1 % (42.0-52.0); Hemoglobin 16.2 g/dL (14.1-18.0); Lymphocytes # 0.9 K/mm3 (0.7-4.5); Mean Corpuscular HGB Conc 34.4 g/dL (31.8-35.4); Mean Corpuscular Hemoglobin 29.3 pg (27.0-31.2); Mean Corpuscular Volume 85.2 fl (80-94); Mean Platelet Volume 8.1 fl (7.4-10.4); Monocytes # 0.6 K/mm3 (0.1-1.0); Monocytes % 4.3 % (1.7-9.3); Neutrophils # 13.4 K/mm3 (1.8-7.8); Neutrophils % 88.8 % (37.0-80.0); Platelet Count 213 K/mm3 (142-424); Red Blood Count 5.53 M/mm3 (4.60-6.20); White Blood Count 15.1 K/mm3 (4.8-10.8)
[2023-09-15 03:58] LABS: MANUAL DIFFERENTIAL MANUAL DIFFERENTIAL (MANUAL DIFF)
[2023-09-15 03:59] LABS: Chloride 99 mmol/L (98-107); Potassium 3.8 mmoL/L (3.5-5.1); Sodium 132 mmol/L (136-145)
[2023-09-15 04:01] LABS: Alanine Aminotransferase 125 U/L (12-78); Aspartate Amino Transferase 81 U/L (17-59); Blood Urea Nitrogen 15 mg/dl (9-20); Creatinine Clearance Estimated 111 mL/min (50-200); Estimated Glomerular Filt Rate 57 ml/min (>60); GFR (African American) 69 ML/MIN (>60)
[2023-09-15 04:02] LABS: Albumin Level 3.8 g/dl (3.5-5.0); Albumin/Globulin Ratio 1.2 (1.1-1.8); Alkaline Phosphatase 171 U/L (38-126); Anion Gap 16.8 mEq/L (5-15); Bilirubin,Total 2.7 mg/dl (0.2-1.3); Calcium 8.8 mg/dl (8.4-10.2); Carbon Dioxide 20 mmol/L (22.0-30.0); Creatine Kinase 70 U/L (55-170); Globulin 3.2 g/dL (1.3-3.2); Glucose 216 mg/dl (74-100)
[2023-09-15 04:05] LABS: Lipase 47 U/L (23-300); Salicylate < 1.0 mg/dL (2.0-20.0)
--- NOTE | 2023-09-15 04:07 | PC.NURSE ---
Todtic 4.3 per Louise in the lab. informed.
[2023-09-15 04:24] LABS: Lymphocytes % 7 % (10-50); Monocytes % 1 % (2-9); Neutrophils % 89 % (42-76); Platelet Estimate Normal; RBC Morphology Normal; Total Cells Counted 100
[2023-09-15 04:26] LABS: Lactic Acid 4.3 mmol/L (0.7-2.1)
[2023-09-15] MEDS: SODIUM CHLORIDE 1635 ML IV (04:33)
--- NOTE | 2023-09-15 04:35 | PC.NURSE ---
on phone with hospitalist
--- NOTE | 2023-09-15 04:43 | PC.NURSE ---
notified housekeeping manager of admission
--- NOTE | 2023-09-15 04:44 | PC.NURSE ---
SPOKE WITH ISIDRO RE: UA ORDER NEEDING OVER RIDDEN D/T SYSTEM AUTOMATIC CANCELLATION WHERE HE WAS HERE IN THE LAST 24 HOURS.
--- NOTE | 2023-09-15 04:45 | PC.NURSE ---
RECEIVED CALL BACK FROM JACUMBA WHO ADVISED US PATIENT IS GOING TO 205 AND TO GO AHEAD AND CALL REPORT TO SANDRA
--- NOTE | 2023-09-15 04:46 | PC.NURSE ---
REPORT CALLED TO SANDRA KEN RN AT THIS TIME.
--- NOTE | 2023-09-15 05:12 | EXP.HP ---
History of Present Illness *Admission Date: 09/15/23 *Reason for visit:: pyelonephritis *History of present illness: 38 year old male presented to the [facility] ED for c/o nausea and vomiting. Yesterday he was in the ED for c/o chills and dysuria. He was diagnosed with pyelonephritis and discharged home on ciprofloxacin and zofran. The pt returned to the ED this morning due to not being able to tolerate oral intake or take medications. His CT scan from 09/13 revealed that the left kidney had perinephric fat stranding concerning for pyelonephritis and right nephrolithiasis without obstruction. His blood today reveals an NORAH of 1.40, leukocytosis of 15.1, lactate of 4.3, and anion gap of 16.8. His urine yesterday was positive for numerous wbc and nitrates. He was given IV fluids for sepsis and IV Rocephin. The ED physician consulted the hospitalist team for further medical management. [facility] Disclaimer: The information contained in this section may have been updated after the patient was seen, as this information can be updated by other users. Medical History (Updated 09/15/23 @ 05:41 by MICHELE Patterson) Generalized anxiety disorder History of kidney stones Hypertension Surgical History History of tonsillectomy Family History (Updated 09/15/23 @ 05:08 by Joselyn Manning RN) Other Family history of diabetes mellitus Family history of heart attack Social History (Updated 09/15/23 @ 05:08 by Joselyn Manning RN) Smoking Status: Never smoker how long ago did patient quit smokin years ago; moved to a vape second hand exposure: No alcohol intake: never counseling given: No substance use type: denies use current occupational status: employed Travel in the last 8 weeks: None adopted: No caregiver/support person: No foster care: No household members: family housing: house lives independently: Yes marital status: number of children: 3 number of grandchildren: 0 education level: high school service: No prison: No 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 Hx Recent Travel: No sexually active: Yes working smoke detector in home: Yes fire extinguisher in home: Yes carbon monox detector in home: No firearms in home: Yes firearms unloaded and locked: Yes Review of Systems Review of Systems Review of systems:: pertinent systems reviewed and negative unless documented below Meds Home Medications and Allergies Home Medications Medication Instructions Recorded Confirmed Type ciprofloxacin HCl 500 mg tablet 500 mg PO BID Infection 09/15/23 09/15/23 History (Cipro) ondansetron 4 mg disintegrating 4 mg PO Q8HP PRN nausea and 09/15/23 09/15/23 History tablet vomiting New Prescriptions to Start Prescriptions: Allergies Allergy/AdvReac Type Severity Reaction Status Date / Time No Known Allergies Allergy Verified 05/31/23 12:11 Exam Data for Last 24 hours Vital signs and Labs for Last 24 Hours: Temp Pulse Resp BP Pulse Ox O2 Del Method 98.2 F 107 H 18 139/79 96 Room Air 09/15/23 04:47 09/15/23 04:47 09/15/23 04:47 09/15/23 04:47 09/15/23 04:30 09/15/23 04:47 Laboratory Results - last 24 hr 09/15/23 03:40: WBC 15.1 H, RBC 5.53, Hgb 16.2, Hct 47.1, MCV 85.2, MCH 29.3, MCHC 34.4, RDW 13.0, Plt Count 213, MPV 8.1, Neut % (Auto) 88.8 H, Lymph % (Auto) 6.0 L, [place] % (Auto) 4.3, Eos % (Auto) 0.5, Baso % (Auto) 0.5, Neut # (Auto) 13.4 H, Lymph # (Auto) 0.9, [place] # (Auto) 0.6, Eos # (Auto) 0.1, Baso # (Auto) 0.1, Total Counted 100, Neutrophils % (Manual) 89 H, Lymphocytes % (Manual) 7 L, Atypical Lymphs % 3.0, Monocytes % (Manual) 1 L, Platelet Estimate Normal, RBC Morphology Normal, Sodium 132 L, Potassium 3.8, Chloride 99, Carbon Dioxide 20 L, Anion Gap 16.8 H, BUN 15, Creatinine 1.40 H, Estimated Creat Clear 111, Estimated GFR 57 L, Est GFR ( Amer) 69, Glucose 216 H D, Lactate 4.3 H, Calcium 8.8, Total Bilirubin 2.7 H, AST 81 H, ALT 125 H D, Alkaline Phosphatase 171 H, Total Creatine Kinase 70, Total Protein 7.0, Albumin 3.8 D, Globulin 3.2, Albumin/Globulin Ratio 1.2, Lipase 47, Salicylates < 1.0 L I & O for Last 24 hours: Intake & Output 09/12/23 09/13/23 09/14/23 09/15/23 23:59 23:59 23:59 23:59 Weight 108.862 kg Constitutional Constitutional: no acute distress *Routine HEENT Exam Head: Present normocephalic Eye: Present EOMI ENT: Present mucous membranes moist *Routine Neck Exam Neck: Present full ROM *Routine Respiratory Exam Respiratory: Present CTA bilaterally *Routine Cardiovascular Exam Cardiovascular: Present tachycardia *Routine Abdominal Exam Abdominal: Present soft and normoactive bowel sounds *Routine Rectal Exam Rectal:: deferred *Routine Genitalia Exam Genitalia:: deferred *Routine Extremities Exam Extremities: Present full ROM *Routine Skin Exam Skin: Present intact and warm *Routine Neurological Exam Neurological: Present alert and oriented X3 Assessment and Plan *Assessment and plan (1) Sepsis: Status: Acute Qualifiers: Sepsis acute organ dysfunction status: with acute organ dysfunction Sepsis type: sepsis due to unspecified organism Severe sepsis acute organ dysfunction type: unspecified Severe sepsis shock status: without septic shock Qualified Code(s): A41.9 - Sepsis, unspecified organism; R65.20 - Severe sepsis without septic shock Category: Medical Code(s): A41.9 - Sepsis, unspecified organism (2) Acute pyelonephritis: Status: Acute Category: Medical Code(s): N10 - Acute pyelonephritis (3) NORAH (acute kidney injury): Status: Acute Category: Medical Code(s): N17.9 - Acute kidney failure, unspecified (4) Diabetes: Status: Acute Category: Medical Code(s): E11.9 - Type 2 diabetes mellitus without complications Plan 38 year old male presented to the [facility] ED for c/o nausea and vomiting. Yesterday he was in the ED for c/o chills and dysuria. He was diagnosed with pyelonephritis and discharged home on ciprofloxacin and zofran. The pt returned to the ED this morning due to not being able to tolerate oral intake or take medications. His CT scan from 09/13 revealed that the left kidney had perinephric fat stranding concerning for pyelonephritis and right nephrolithiasis without obstruction. His blood today reveals an NORAH of 1.40, leukocytosis of 15.1, lactate of 4.3, and anion gap of 16.8. His urine yesterday was positive for numerous wbc and nitrates. He was given IV fluids for sepsis and IV Rocephin. The ED physician consulted the hospitalist team for further medical management. SEPSIS ACUTE PYELONEPHRITIS NORAH -creatinine of 1.40, leukocytosis of 15.1, lactate of 4.3, and anion gap of 16.8 -HR 107, leukocytosis of 15.1, and known infection -CT scan from 09/13 revealed that the left kidney had perinephric fat stranding concerning for pyelonephritis and right nephrolithiasis without obstruction -failed outpatient therapy -continue IV Rocephin 1g daily -sepsis bolus given in ED. Continue NS @ 125mL/hr -encourage oral hydration -ua, urine, and blood cultures pending -repeat cbc and bmp -trend lactate -Tylenol 650 mg and toradol 15mg IV as needed for pain and fever -zofran 4mg and phenergan 12.5 mg as needed for nausea and vomiting DM -ssi FULL CODE REGULAR DIET DVT: SCD Attending attestation Patient was seen and evaluated at the bedside myself, agree with DILCIA note., patient has new onset DM, A1c 9.5. continue IV abx
[2023-09-15 05:23] LABS: Hemoglobin A1C 9.5 % (4.0-6.0)
[2023-09-15] MEDS: humaLOG 100 UNITS/ML 3ML VIAL (SSI) SQ ×4 (05:50→21:59)
[2023-09-15] MEDS: 0.9 % SODIUM CHLORIDE 1000ML 1,000 ML 125 ML IV ×3 (06:15→22:18)
[2023-09-15 07:08] LABS: Microscopic, Urine URINE MICROSCOPIC (MICROSCOPIC)
[2023-09-15 07:09] LABS: Appearance,Urine CLEAR (Clear); Blood, Urine 2+ (Negative); Color,Urine YELLOW (Yellow); Glucose,Urine (UA) TRACE (Negative); Ketones,Urine 1+ (Negative); Leukocyte Esterase,Urine TRACE (Negative); Nitrate,Urine Negative (Negative); PH,Urine 5.5 (5.0-8.5); Protein,Urine 2+ (Negative)
[2023-09-15 07:35] LABS: Bilirubin,Urine 2+ (Negative)
[2023-09-15 07:42] LABS: Amorphous Sediment,Urine 1+ /lpf; Bacteria,Urine 1+ /lpf
[2023-09-15 07:43] LABS: POC Glucose,Bedside 166 (70-110)
[2023-09-15 07:50] LABS: Reflex Lactic Add Lactic Reflex
[2023-09-15 07:53] LABS: Basophils % 0.3 % (0.1-2.0); Hematocrit 42.1 % (42.0-52.0); Lymphocytes # 1.1 K/mm3 (0.7-4.5); Lymphocytes % 6.4 % (10-50); Mean Corpuscular HGB Conc 33.6 g/dL (31.8-35.4); Mean Corpuscular Hemoglobin 29.6 pg (27.0-31.2); Mean Corpuscular Volume 87.9 fl (80-94); Monocytes # 1.2 K/mm3 (0.1-1.0); Monocytes % 7.2 % (1.7-9.3); Platelet Count 184 K/mm3 (142-424); Red Blood Count 4.78 M/mm3 (4.60-6.20); Red Cell Distribution Width 13.3 % (11.5-17.5); White Blood Count 16.2 K/mm3 (4.8-10.8)
[2023-09-15 08:13] LABS: Anion Gap 11.7 mEq/L (5-15); Blood Urea Nitrogen 15 mg/dl (9-20); Calcium 7.9 mg/dl (8.4-10.2); Carbon Dioxide 24 mmol/L (22.0-30.0); Chloride 102 mmol/L (98-107); Creatinine Clearance Estimated 92 mL/min (50-200); Estimated Glomerular Filt Rate 49 ml/min (>60); GFR (African American) 59 ML/MIN (>60); Glucose 175 mg/dl (74-100); Potassium 3.7 mmoL/L (3.5-5.1); Sodium 134 mmol/L (136-145)
[2023-09-15 09:00] LABS: Hemoglobin 14.1 g/dL (14.1-18.0)
[2023-09-15 09:05] LABS: Lactic Acid Follow Up (RFLX 1) 1.6 mmol/L (0.7-2.1)
--- NOTE | 2023-09-15 09:07 | HMH.PHAINT1 ---
Pharmacy Intervention Comments: MEDICATION RECONCILIATION COMPLETED ON PATIENT USING EXTERNAL FILL HISTORY FROM PHARMACY. -SUSAN FELIZ, RICHD
[2023-09-15 11:20] LABS: Hemoglobin A1C 9.3 % (4.0-6.0)
--- NOTE | 2023-09-15 11:45 | DIET.NUTRFU ---
Will include diabetic diet instruction with discharge paperwork and follow-up with questions
[2023-09-15 11:51] LABS: POC Glucose,Bedside 227 (70-110)
[2023-09-15] MEDS: ACETAMINOPHEN 325MG TAB 650 MG PO ×2 (14:50→21:05)
[2023-09-15 16:49] LABS: POC Glucose,Bedside 187 (70-110)
[2023-09-15 21:45] LABS: POC Glucose,Bedside 184 (70-110)
[2023-09-16] VITALS: BP 118/66; PULSE 78; RESP 16; TEMP 36.6; O2SAT 95
[2023-09-16] MEDS: CEFTRIAXONE SODIUM 1 GM in 0.9 % SODIUM CHLORIDE 50 ML IV (02:09)
[2023-09-16 04:00] VITALS: BP 126/73; PULSE 73; RESP 16; TEMP 36.6; O2SAT 97; BMI 29.7
[2023-09-16] MEDS: 0.9 % SODIUM CHLORIDE 1000ML 1,000 ML 125 ML IV (06:13)
[2023-09-16 06:22] LABS: POC Glucose,Bedside 149 (70-110)
[2023-09-16 07:20] LABS: Basophils # 0.1 K/mm3 (0-0.2); Basophils % 1.1 % (0.1-2.0); Eosinophils # 0.1 K/mm3 (0.0-0.4); Eosinophils % 0.7 % (0.1-12.0); Hematocrit 41.2 % (42.0-52.0); Hemoglobin 13.6 g/dL (14.1-18.0); Lymphocytes # 1.7 K/mm3 (0.7-4.5); Mean Corpuscular HGB Conc 33.1 g/dL (31.8-35.4); Mean Corpuscular Hemoglobin 28.9 pg (27.0-31.2); Mean Corpuscular Volume 87.2 fl (80-94); Mean Platelet Volume 7.9 fl (7.4-10.4); Monocytes # 0.8 K/mm3 (0.1-1.0); Monocytes % 6.6 % (1.7-9.3); Neutrophils # 9.3 K/mm3 (1.8-7.8); Neutrophils % 77.7 % (37.0-80.0); Platelet Count 195 K/mm3 (142-424); Red Blood Count 4.72 M/mm3 (4.60-6.20); Red Cell Distribution Width 13.3 % (11.5-17.5)
[2023-09-16 07:38] LABS: Alanine Aminotransferase 59 U/L (12-78); Albumin/Globulin Ratio 1.1 (1.1-1.8); Alkaline Phosphatase 118 U/L (38-126); Anion Gap 11.5 mEq/L (5-15); Aspartate Amino Transferase 38 U/L (17-59); Bilirubin,Total 1.1 mg/dl (0.2-1.3); Blood Urea Nitrogen 14 mg/dl (9-20); Calcium 8.2 mg/dl (8.4-10.2); Carbon Dioxide 22 mmol/L (22.0-30.0); Chloride 105 mmol/L (98-107); Creatinine Clearance Estimated 116 mL/min (50-200); Estimated Glomerular Filt Rate 62 ml/min (>60); GFR (African American) 75 ML/MIN (>60); Globulin 2.8 g/dL (1.3-3.2); Glucose 170 mg/dl (74-100); Magnesium 1.8 mg/dl (1.6-2.3); Potassium 3.5 mmoL/L (3.5-5.1); Sodium 135 mmol/L (136-145); Total Protein,Serum 5.8 g/dl (6.3-8.2)
[2023-09-16 07:45] VITALS: BP 145/82; PULSE 85; RESP 22; TEMP 36.6; O2SAT 96
[2023-09-16] MEDS: humaLOG 100 UNITS/ML 3ML VIAL (SSI) SQ ×3 (10:42→21:14)
[2023-09-16 11:07] LABS: POC Glucose,Bedside 209 (70-110)
[2023-09-16 11:53] VITALS: BP 151/94; PULSE 87; RESP 20; TEMP 37.4; O2SAT 97
--- NOTE | 2023-09-16 12:01 | DIET.NUTRFU ---
New diabetic, provided and reviewed multiple diabetic handouts-label reading, carb counting and plate method. Also reviewed outpatient consult if needed. Patient indicated his dad has diabetes and his girlfriend is very supportive and will help with grocery shopping. Reviewed multiple menu examples.
--- NOTE | 2023-09-16 12:12 | P.PN_ITS ---
Subjective *Date: 09/16/23 *Time: 19:38 Interval history: Patient feeling better this morning but states he had chills and sweats overnight. Denies any chest pain, nausea, shortness of breath, vomiting or diarrhea. Afebrile at this time. Tolerating p.o. intake. Showing improvement in white cell count on labs Medical Exam Vital signs and Labs for Last 24 Hours: Vital Signs Temp Pulse Resp BP Pulse Ox O2 Del Method 09/16/23 11:53 99.3 F 87 20 151/94 H 97 Room Air 09/16/23 11:00 Room Air 09/16/23 09:00 Room Air 09/16/23 08:00 Room Air 09/16/23 07:45 97.9 F 85 22 145/82 H 96 Room Air 09/16/23 06:24 Room Air 09/16/23 05:00 Room Air 09/16/23 04:00 97.9 F 73 16 126/73 97 Room Air 09/16/23 03:00 Room Air 09/16/23 01:00 Room Air 09/16/23 00:00 97.9 F 78 16 118/66 95 Room Air 09/15/23 23:00 Room Air 09/15/23 21:00 Room Air 09/15/23 20:00 97 Room Air 09/15/23 20:00 97.8 F 72 17 135/73 95 Room Air 09/15/23 18:52 Room Air 09/15/23 17:00 Room Air 09/15/23 15:54 98.2 F 96 H 18 129/78 96 Room Air 09/15/23 15:00 Room Air 09/15/23 13:00 Room Air Intake and Output 09/15/23 09/16/23 09/16/23 23:59 07:59 15:59 Intake Total 866 / 1616 1550 / 1900 350 / 1900 Output Total 0 / 0 0 / 0 0 / 0 Balance 866 / 1616 1550 / 1900 350 / 1900 Intake: Intake, Oral Amount 240 / 990 0 / 350 350 / 350 Intake, Total IV Amount 626 / 626 1550 / 1550 0.9 % Sodium Chloride 1000ML 1, 626 / 626 1550 / 1550 000 ml @ 125 mls/hr IV .Q8H [facility] Rx#:[id number] Output: Output, Urine Amount 0 / 0 0 / 0 0 / 0 Other: Number of Unmeasured Voids 1 1 1 Weight 105.279 kg Patient Weight 09/16/23 23:59 Weight 105.279 kg Laboratory Results - last 24 hr 09/15/23 16:32: POC Glucose 187 H 09/15/23 20:59: POC Glucose 184 H 09/16/23 06:05: POC Glucose 149 H 09/16/23 06:44: WBC 12.0 H D, RBC 4.72, Hgb 13.6 L, Hct 41.2 L, MCV 87.2, MCH 28.9, MCHC 33.1, RDW 13.3, Plt Count 195, MPV 7.9, Neut % (Auto) 77.7, Lymph % (Auto) 14.0, [place] % (Auto) 6.6, Eos % (Auto) 0.7, Baso % (Auto) 1.1, Neut # (Auto) 9.3 H, Lymph # (Auto) 1.7, [place] # (Auto) 0.8, Eos # (Auto) 0.1, Baso # (Auto) 0.1, Sodium 135 L, Potassium 3.5, Chloride 105, Carbon Dioxide 22, Anion Gap 11.5, BUN 14, Creatinine 1.30 H, Estimated Creat Clear 116, Estimated GFR 62, Est GFR ( Amer) 75 D, Glucose 170 H, Calcium 8.2 L, Magnesium 1.8, Total Bilirubin 1.1, AST 38 D, ALT 59 D, Alkaline Phosphatase 118, Total Protein 5.8 L, Albumin 3.0 L D, Globulin 2.8, Albumin/Globulin Ratio 1.1 09/16/23 10:40: POC Glucose 209 H I & O for Labs for Last 24 Hours: Intake & Output 09/13/23 09/14/23 09/15/23 09/16/23 23:59 23:59 23:59 23:59 Intake Total 1615 Output Total 0 / 0 0 / 0 Balance 1615 Weight 102.4 kg 105.279 kg Constitutional: Present no acute distress, average body habitus and cooperative Head: Present atraumatic and normocephalic ENT: Present normal exam Respiratory: Present normal respiratory effort; Absent rhonchi, wheezes or crackles Cardiac: Present Reg Rate and Rhythm GI: Present soft and normal bowel sounds; Absent distention or tenderness Extremities: Present normal inspection and full ROM Skin: Present intact; Absent erythema Neuro: Present Grossly Intact, alert, awake, oriented x 3 and moves all extremities Assessment and Plan *Assessment and plan (1) Sepsis: Status: Acute Qualifiers: Sepsis acute organ dysfunction status: with acute organ dysfunction Sepsis type: sepsis due to unspecified organism Severe sepsis acute organ dysfunction type: unspecified Severe sepsis shock status: without septic shock Qualified Code(s): A41.9 - Sepsis, unspecified organism; R65.20 - Severe sepsis without septic shock Category: Medical Code(s): A41.9 - Sepsis, unspecified organism (2) Acute pyelonephritis: Status: Acute Category: Medical Code(s): N10 - Acute pyelonephritis (3) NORAH (acute kidney injury): Status: Acute Category: Medical Code(s): N17.9 - Acute kidney failure, unspecified (4) Diabetes: Status: Acute Category: Medical Code(s): E11.9 - Type 2 diabetes mellitus without complications Plan 38 year old male presented to the [facility] ED for c/o nausea and vomiting. Yesterday he was in the ED for c/o chills and dysuria. He was diagnosed with pyelonephritis and discharged home on ciprofloxacin and zofran. The pt returned to the ED this morning due to not being able to tolerate oral intake or take medications. His CT scan from 09/13 revealed that the left kidney had perinephric fat stranding concerning for pyelonephritis and right nephrolithiasis without obstruction. His blood today reveals an NORAH of 1.40, leukocytosis of 15.1, lactate of 4.3, and anion gap of 16.8. His urine yesterday was positive for numerous wbc and nitrates. He was given IV fluids for sepsis and IV Rocephin. The ED physician consulted the hospitalist team for further medical management. Patient showing some improvement this morning. Continues to require inpatient management. Problems addressed as follows: SEPSIS ACUTE PYELONEPHRITIS NORAH -creatinine of 1.40 on presentation, 1.3 this morning. -White cell count improved to 12, repeat CBC, CMP, magnesium ordered for the morning -Continue ceftriaxone IV. Monitoring for improvement. Urine culture pending. -Tolerating p.o. fluids, no further IV fluids -Blood cultures pending -Tylenol 650 mg and toradol 15mg IV as needed for pain and fever -zofran 4mg and phenergan 12.5 mg as needed for nausea and vomiting DM, new diagnosis. A1c 9.3. Sliding scale insulin fingersticks ACHS. FULL CODE REGULAR DIET DVT: SCD
[2023-09-16] MEDS: KETOROLAC 30MG/ML VIAL 15 MG IV ×2 (13:40→20:44)
[2023-09-16 16:00] VITALS: BP 136/79; PULSE 78; RESP 24; TEMP 36.6; O2SAT 97
[2023-09-16 16:31] LABS: POC Glucose,Bedside 161 (70-110)
--- NOTE | 2023-09-16 17:21 | PC.NURSE ---
A&OX4. TOLERATING RA WELL. INDEPENDENT IN ROOM, HAS SHOWERED AND BEEN UP TO CHAIR MAJORITY OF DAY. FSBS BEING CHECKED, HAS RECEIVED HUMALOG PER MAR. PT HAS C/O LOPEZ ONCE TODAY, RELIEVED WITH TORADOL PER MAR. NO OTHER NEEDS OR C/O NOTED. VSS.
[2023-09-16 20:00] VITALS: BP 148/87; PULSE 77; RESP 18; TEMP 36.8; O2SAT 96
[2023-09-16] MEDS: ACETAMINOPHEN 325MG TAB 650 MG PO (21:23)
[2023-09-16] MEDS: PROMETHAZINE HCL 25MG/ML 1ML VIAL 12.5 MG IV (21:23)
[2023-09-16 22:02] LABS: POC Glucose,Bedside 199 (70-110)
[2023-09-17] VITALS: BP 150/80; PULSE 73; RESP 20; TEMP 36.4; O2SAT 97
[2023-09-17] MEDS: 0.9 % SODIUM CHLORIDE 1000ML 1,000 ML 125 ML IV (00:45)
[2023-09-17] MEDS: CEFTRIAXONE SODIUM 1 GM in 0.9 % SODIUM CHLORIDE 50 ML IV (03:05)
[2023-09-17 04:00] VITALS: BP 144/87; PULSE 65; RESP 22; TEMP 36.6; O2SAT 98; BMI 29.4
[2023-09-17] MEDS: humaLOG 100 UNITS/ML 3ML VIAL (SSI) SQ (05:51)
[2023-09-17 06:08] LABS: POC Glucose,Bedside 157 (70-110)
[2023-09-17 07:11] LABS: Basophils # 0.1 K/mm3 (0-0.2); Basophils % 0.9 % (0.1-2.0); Eosinophils # 0.1 K/mm3 (0.0-0.4); Eosinophils % 1.4 % (0.1-12.0); Hematocrit 41.9 % (42.0-52.0); Hemoglobin 13.8 g/dL (14.1-18.0); Lymphocytes % 23.6 % (10-50); Mean Corpuscular HGB Conc 32.9 g/dL (31.8-35.4); Mean Corpuscular Hemoglobin 28.8 pg (27.0-31.2); Mean Corpuscular Volume 87.4 fl (80-94); Monocytes # 0.5 K/mm3 (0.1-1.0); Monocytes % 5.7 % (1.7-9.3); Neutrophils # 5.8 K/mm3 (1.8-7.8); Neutrophils % 68.4 % (37.0-80.0); Platelet Count 232 K/mm3 (142-424); Red Cell Distribution Width 13.4 % (11.5-17.5); White Blood Count 8.4 K/mm3 (4.8-10.8)
[2023-09-17 07:22] LABS: Alkaline Phosphatase 124 U/L (38-126); Anion Gap 11.8 mEq/L (5-15); Bilirubin,Total 0.6 mg/dl (0.2-1.3); Blood Urea Nitrogen 13 mg/dl (9-20); Calcium 8.4 mg/dl (8.4-10.2); Carbon Dioxide 25 mmol/L (22.0-30.0); Chloride 105 mmol/L (98-107); Creatinine Clearance Estimated 149 mL/min (50-200); Estimated Glomerular Filt Rate 84 ml/min (>60); GFR (African American) 102 ML/MIN (>60); Glucose 185 mg/dl (74-100); Potassium 3.8 mmoL/L (3.5-5.1); Sodium 138 mmol/L (136-145)
[2023-09-17 07:23] LABS: Alanine Aminotransferase 48 U/L (12-78); Aspartate Amino Transferase 38 U/L (17-59)
--- NOTE | 2023-09-17 07:50 | EXP.DC.SUM ---
General Admission date:: 09/15/23 Discharge date: 09/17/23 HPI HPI HPI: 38 year old male presented to the [facility] ED for c/o nausea and vomiting. Yesterday he was in the ED for c/o chills and dysuria. He was diagnosed with pyelonephritis and discharged home on ciprofloxacin and zofran. The pt returned to the ED this morning due to not being able to tolerate oral intake or take medications. His CT scan from 09/13 revealed that the left kidney had perinephric fat stranding concerning for pyelonephritis and right nephrolithiasis without obstruction. His blood today reveals an NORAH of 1.40, leukocytosis of 15.1, lactate of 4.3, and anion gap of 16.8. His urine yesterday was positive for numerous wbc and nitrates. He was given IV fluids for sepsis and IV Rocephin. The ED physician consulted the hospitalist team for further medical management. Hospital Course Hospital Course Hospital Course: 38 year old male presented to the [facility] ED for c/o nausea and vomiting. In the ED the day before admission. He had complaint of chills and dysuria. He was diagnosed with pyelonephritis and discharged home on ciprofloxacin and zofran. The pt returned to the ED the morning of admission due to not being able to tolerate oral intake or take medications. His CT scan from 09/13 revealed that the left kidney had perinephric fat stranding concerning for pyelonephritis and right nephrolithiasis without obstruction. There admission he had NORAH and leukocytosis with creatinine 1.40, leukocytosis of 15.1, lactate of 4.3, and anion gap of 16.8. His urine yesterday was positive for numerous wbc and nitrates. Started on IV fluids for sepsis and IV Rocephin. Admitted to medicine. Has done well during admission. Fevers have defervesced. White cell count normalized to 8.4. Meeting criteria for discharge home. Will complete antibiotic course orally as an outpatient. Problems addressed as follows: SEPSIS ACUTE PYELONEPHRITIS NORAH -creatinine of 1.40 on presentation, 1.0 this morning. Making good urine. White cell count is normalized to 8.4. Patient is afebrile. Treated with ceftriaxone since admission. Will start treatment course from initiation of ceftriaxone. Urine culture not showing any growth at this time, however given clinical course will treat for 7 days total with antibiotic. Transition to cefdinir to complete course. Patient tolerating p.o. intake. Recommend follow-up with PCP to monitor for resolution of symptoms as well as to treat problem below. DM, new diagnosis. A1c 9.3. Sliding scale insulin fingersticks ACHS during admission. Received 8 units of insulin a day. Will initiate glipizide metformin on discharge. Recommend close follow-up for further management. Will likely need further medications/treatment. Will need repeat A1c in 3 months. Stable to discharge home. Exam Data for Last 24 hours Vital signs and Labs for Last 24 Hours: Temp Pulse Resp BP Pulse Ox O2 Del Method 97.9 F 85 22 145/82 H 96 Room Air 09/16/23 07:45 09/16/23 07:45 09/16/23 07:45 09/16/23 07:45 09/16/23 07:45 09/16/23 09:00 Laboratory Results - last 24 hr 09/15/23 07:31: Hemoglobin A1c 9.3 H 09/15/23 11:29: POC Glucose 227 H 09/15/23 16:32: POC Glucose 187 H 09/15/23 20:59: POC Glucose 184 H 09/16/23 06:05: POC Glucose 149 H 09/16/23 06:44: WBC 12.0 H D, RBC 4.72, Hgb 13.6 L, Hct 41.2 L, MCV 87.2, MCH 28.9, MCHC 33.1, RDW 13.3, Plt Count 195, MPV 7.9, Neut % (Auto) 77.7, Lymph % (Auto) 14.0, [place] % (Auto) 6.6, Eos % (Auto) 0.7, Baso % (Auto) 1.1, Neut # (Auto) 9.3 H, Lymph # (Auto) 1.7, [place] # (Auto) 0.8, Eos # (Auto) 0.1, Baso # (Auto) 0.1, Sodium 135 L, Potassium 3.5, Chloride 105, Carbon Dioxide 22, Anion Gap 11.5, BUN 14, Creatinine 1.30 H, Estimated Creat Clear 116, Estimated GFR 62, Est GFR ( Amer) 75 D, Glucose 170 H, Calcium 8.2 L, Magnesium 1.8, Total Bilirubin 1.1, AST 38 D, ALT 59 D, Alkaline Phosphatase 118, Total Protein 5.8 L, Albumin 3.0 L D, Globulin 2.8, Albumin/Globulin Ratio 1.1 I & O for Last 24 hours: Intake & Output 09/13/23 09/14/23 09/15/23 09/16/23 23:59 23:59 23:59 23:59 Intake Total 1616 / 1616 1899 / 1900 Output Total 0 / 0 0 / 0 Balance 1616 / 1611899 / 1899 Weight 102.4 kg 105.279 kg Constitutional Constitutional: no acute distress and cooperative *Routine HEENT Exam Head: Present normocephalic Eye: Present EOMI and PERRL ENT: Present mucous membranes moist *Routine Neck Exam Neck: Present supple; Absent lymphadenopathy *Routine Respiratory Exam Respiratory: Present CTA bilaterally; Absent rhonchi, wheezes or crackles *Routine Cardiovascular Exam Cardiovascular: Present RRR *Routine Abdominal Exam Abdominal: Present soft and normoactive bowel sounds; Absent tenderness *Routine Rectal Exam Patient deferred: visual exam *Routine Exam Patient deferred: penile exam *Routine Extremities Exam Extremities: Absent cyanosis, clubbing or edema *Routine Skin Exam Skin: Present warm; Absent rash *Routine Neurological Exam Neurological: Present alert, oriented X3 and moving all extremities; Absent altered mental status Results Data Completed and Pending Labs on day of discharge: Labs from last 24 hours 09/16/23 09/16/23 09/15/23 06:44 06:05 20:59 WBC 12.0 H D RBC 4.72 Hgb 13.6 L Hct 41.2 L MCV 87.2 MCH 28.9 MCHC 33.1 RDW 13.3 Plt Count 195 MPV 7.9 Neut % (Auto) 77.7 Lymph % (Auto) 14.0 [place] % (Auto) 6.6 Eos % (Auto) 0.7 Baso % (Auto) 1.1 Neut # (Auto) 9.3 H Lymph # (Auto) 1.7 [place] # (Auto) 0.8 Eos # (Auto) 0.1 Baso # (Auto) 0.1 Sodium 135 L Potassium 3.5 Chloride 105 Carbon Dioxide 22 Anion Gap 11.5 BUN 14 Creatinine 1.30 H Estimated Creat Clear 116 Estimated GFR 62 Est GFR ( Amer) 75 D Glucose 170 H POC Glucose 149 H 184 H Hemoglobin A1c Calcium 8.2 L Magnesium 1.8 Total Bilirubin 1.1 AST 38 D ALT 59 D Alkaline Phosphatase 118 Total Protein 5.8 L Albumin 3.0 L D Globulin 2.8 Albumin/Globulin Ratio 1.1 09/15/23 09/15/23 09/15/23 16:32 11:29 07:31 WBC RBC Hgb Hct MCV MCH MCHC RDW Plt Count MPV Neut % (Auto) Lymph % (Auto) [place] % (Auto) Eos % (Auto) Baso % (Auto) Neut # (Auto) Lymph # (Auto) [place] # (Auto) Eos # (Auto) Baso # (Auto) Sodium Potassium Chloride Carbon Dioxide Anion Gap BUN Creatinine Estimated Creat Clear Estimated GFR Est GFR ( Amer) Glucose POC Glucose 187 H 227 H Hemoglobin A1c 9.3 H Calcium Magnesium Total Bilirubin AST ALT Alkaline Phosphatase Total Protein Albumin Globulin Albumin/Globulin Ratio DS: Diagnosis Discharge Diagnosis (1) Sepsis: Status: Acute Code(s): A41.9 - Sepsis, unspecified organism Qualifiers: Sepsis acute organ dysfunction status: with acute organ dysfunction Sepsis type: sepsis due to unspecified organism Severe sepsis acute organ dysfunction type: unspecified Severe sepsis shock status: without septic shock Qualified Code(s): A41.9 - Sepsis, unspecified organism; R65.20 - Severe sepsis without septic shock (2) Acute pyelonephritis: Status: Acute Code(s): N10 - Acute pyelonephritis (3) NORAH (acute kidney injury): Status: Acute Code(s): N17.9 - Acute kidney failure, unspecified (4) Diabetes: Status: Acute Code(s): E11.9 - Type 2 diabetes mellitus without complications Meds Home Medications and Allergies Home Medications Medication Instructions Recorded Confirmed Type glipizide 5 mg tablet 5 mg PO DAILY #30 tabs 09/16/23 Rx metformin 500 mg tablet 500 mg PO BID 30 days #60 tabs 09/16/23 Rx cefdinir 300 mg capsule 300 mg PO BID 4 days #8 caps 09/17/23 Rx New Prescriptions to Start Prescriptions: pauir Vj Boateng glipizide Vj Boateng metformin Vj Boateng Allergies Allergy/AdvReac Type Severity Reaction Status Date / Time No Known Allergies Allergy Verified 05/31/23 12:11 Discharge Plan Disposition Patient Disposition: Home, Self-Care Condition: Fair Follow up Plan Follow up with: Asif Newman MD [Primary Care Provider] - 09/24/23 8:45 am Prescriptions/Medication Reconciliation: New metformin 500 mg tablet 500 mg PO BID 30 Days Qty: 60 0RF glipizide 5 mg tablet 5 mg PO DAILY Qty: 30 0RF cefdinir 300 mg capsule 300 mg PO BID 4 Days Qty: 8 0RF Rx Instructions: first dose due morning of 09/17 Discontinued ciprofloxacin HCl [Cipro] 500 mg tablet 500 mg PO BID ondansetron 4 mg tablet,disintegrating 4 mg PO Q8HP PRN (Reason: nausea and vomiting) Problem Reconciliation Problems Reviewed?: Yes Patient Discharge Instructions ACTIVITY: Continue current activity DIET: continue same diet Patient Instructions: How to Check Your Blood Glucose, Heart-Healthy Diet, High-Fiber Diet, Carbohydrate-Counting Diet, DI for Kidney Infection, DI for Diabetes Type 2, DI for Sepsis -- Adult Providers Primary Care Provider: Asif Newman Admit Provider: Freddy Parker Attending Provider: Bianca Weller
[2023-09-17 08:00] VITALS: BP 152/98; PULSE 73; RESP 18; TEMP 36.9; O2SAT 95
--- NOTE | 2023-09-17 09:15 | HMH.PHAINT1 ---
Pharmacy Intervention Comments: PATIENT RECEIVED DISCHARGE MEDICATION COUNSELING ON THE FOLLOWING MEDICATIONS: -CEFDINIR 300MG TAKE TWICE DAILY, POSSIBLE GI UPSET. CAN TAKE WITH FOOD IF NEEDED. -GLIPIZIDE 5MG DAILY, POSSIBLE GI UPSET AND HYPOGLYCEMIA. -METFORMIN 500MG TWICE DAILY, POSSIBLE GI UPSET AND HYPOGLYCEMIA. PATIENT WAS COUNSELED ON MONITORING FOR LOW BLOOD SUGAR. PATIENT VERBALIZED UNDERSTANDING, WITH NO QUESTIONS REGARDING THE MEDICATIONS.
--- NOTE | 2023-09-19 16:08 | CARE MANAGER ---
Called and spoke with patient regarding recent discharge. Patient stated that he has already followed up with PCP and has made the changes to medications that were prescribed at discharge. Patient had no concerns/questions at time of call.
== END 2023-09-17 09:41 | disposition home or self-care (01) ==
LOC: ER 04:42 → 2ND 07:50
PROVIDERS: Internal Medicine Adolescent Medicine; Admitting Provider Nurse Practitioner Critical Care Medicine; Emergency Provider Emergency Medicine; PCP Family Medicine; Visit Provider Internal Medicine
DX: N10 Acute pyelonephritis (principal); E11.9 Type 2 diabetes mellitus without complications; I10 Essential (primary) hypertension; N17.9 Acute kidney failure, unspecified
CPT/HCPCS: 36415; 80048; 80053; 80329; 81001; 82550; 82962; 83036; 83605; 83690; 83735; 85007; 85025; 87040; 87086; 99291; G0378; J0131; J0696; J2405

== ENCOUNTER 2025-01-09 09:57 | Inpatient (IN) | payer BC, SELFPAY ==
[2025-01-09] VITALS (18 sets, daily range): BP systolic 105–169; BP diastolic 63–102; PULSE 72–108; RESP 10–20; TEMP 36.8–40; O2SAT 96–100; BMI 29.5; BMI 29.9
[2025-01-09 10:23] LABS: Hematocrit 46.2 % (42.0-52.0); Hemoglobin 16.4 g/dL (14.1-18.0); Immature Granulocytes % 0.7 %; Mean Corpuscular HGB Conc 35.5 g/dL (31.8-35.4); Mean Corpuscular Hemoglobin 28.8 pg (27.0-31.2); Mean Corpuscular Volume 81.1 fl (80-94); Nucleated Red Blood Cells % 0 %; Platelet Count 228 K/mm3 (142-424); Red Blood Count 5.70 M/mm3 (4.60-6.20); Red Cell Distribution Width-SD 35.8 fL; White Blood Count 17.3 K/mm3 (4.8-10.8)
--- NOTE | 2025-01-09 10:25 | PC.NURSE ---
spoke with resp regarding VBG
[2025-01-09 10:27] LABS: Chloride 93 mmol/L (98-107)
[2025-01-09 10:28] LABS: Albumin Level 4.8 g/dl (3.5-5.0); Potassium 4.1 mmoL/L (3.5-5.1); Sodium 133 mmol/L (136-145)
[2025-01-09 10:28] LABS: Microscopic, Urine URINE MICROSCOPIC (MICROSCOPIC)
[2025-01-09 10:30] LABS: Blood Urea Nitrogen 15 mg/dl (9-20); Creatinine Clearance Estimated 134 mL/min (50-200); Creatinine,Serum 1.10 mg/dl (0.66-1.25); Estimated Glomerular Filt Rate 75 ml/min (>60); GFR (African American) 91 ML/MIN (>60)
[2025-01-09 10:30] LABS: Color,Urine YELLOW (Yellow); Glucose,Urine (UA) 1+ (Negative); Ketones,Urine 2+ (Negative); Leukocyte Esterase,Urine Negative (Negative); PH,Urine 6.0 (5.0-8.5); Protein,Urine 2+ (Negative); Specific Gravity, Urine 1.025 (1.005-1.030); Urobilinogen,Urine 4.0 EU/dl (0.2)
[2025-01-09 10:31] LABS: Alanine Aminotransferase 85 U/L (12-78); Albumin/Globulin Ratio 1.4 (1.1-1.8); Alkaline Phosphatase 138 U/L (38-126); Anion Gap 17.1 mEq/L (5-15); Aspartate Amino Transferase 62 U/L (17-59); Bilirubin,Total 2.3 mg/dl (0.2-1.3); Calcium 9.4 mg/dl (8.4-10.2); Carbon Dioxide 27 mmol/L (22.0-30.0); Globulin 3.5 g/dL (1.3-3.2); Glucose 243 mg/dl (74-100); Total Protein,Serum 8.3 g/dl (6.3-8.2)
[2025-01-09 10:34] LABS: VBG HCO3 23.3 mmol/L (23-30); VBG PCO2 36.5 mmol/L (35-51); VBG PH 7.42 mmol/L (7.31-7.41); VBG PO2 42.9 mmol/L (28-40)
[2025-01-09 10:35] LABS: Bilirubin,Urine 1+ (Negative)
[2025-01-09 10:36] LABS: Lactate Venous 2.8 mmol/L (0.4-2.0)
[2025-01-09 10:37] LABS: Acetone, Serum (Rapid) None Detected (None Detect)
--- NOTE | 2025-01-09 10:37 | CT_ITS ---
PROCEDURE INFORMATION: Exam: CT Abdomen And Pelvis With Contrast Exam date and time: 01/09/2025 11:10 AM Age: 39 years old Clinical indication: Fever; Additional info: Fever, transaminitis, hyperbili TECHNIQUE: Imaging protocol: Computed tomography of the abdomen and pelvis with contrast. Radiation optimization: All CT scans at this facility use at least one of these dose optimization techniques: automated exposure control; mA and/or kV adjustment per patient size (includes targeted exams where dose is matched to clinical indication); or iterative reconstruction. Contrast material: ISOVUE; Contrast volume: 75 ml; Contrast route: IV; COMPARISON: CT ABDOMEN PELVIS W CON 09/14/2023 5:32 AM FINDINGS: Lungs: The lung bases are clear. Liver: Extensive hepatic steatosis. Mild hepatomegaly. The liver measures about 18.5 cm in craniocaudal dimension. No focal liver lesion appreciated. Gallbladder and biliary ducts: The gallbladder is unremarkable with no calcified stones visualized and no strandy inflammatory changes surrounding the gallbladder. Pancreas: The pancreas is normal in appearance. No evidence of pancreatic ductal dilatation. Spleen: Splenomegaly. The spleen measures 16 cm. No focal splenic lesion appreciated. Adrenal glands: Normal. No mass. Kidneys and ureters: The kidneys are normal in appearance. Focal areas of mild right renal cortical scarring. There is a 7 mm simple appearing right renal cortical cyst. No evidence of hydronephrosis or hydroureter. No nephroureteral calculi are identified. Stomach and bowel: The small bowel loops are not thickened and are nondilated. The colon is unremarkable. Appendix: The appendix is normal in appearance. No evidence of appendicitis. Intraperitoneal space: Unremarkable. No free air. No significant fluid collection. Vasculature: Unremarkable. No abdominal aortic aneurysm. Lymph nodes: Unremarkable. No enlarged lymph nodes. Urinary bladder: The urinary bladder is normal in appearance. Reproductive: Unremarkable as visualized. Bones/joints: No acute osseous lesions. Soft tissues: Small fat containing periumbilical hernia. IMPRESSION: 1. Extensive hepatic steatosis and mild hepatomegaly. 2. Splenomegaly. COMMENTS: Consistent with the [place] [employer]'s Incidental Findings Committee white paper (J Am Floyd Radiol 2018): Any incidental renal lesion less than 1 cm or classified as too small to characterize, or any incidental cystic renal lesion characterized as simple-appearing, is likely benign. No follow-up imaging is recommended for these lesions per consensus recommendations based on imaging criteria.
--- NOTE | 2025-01-09 10:37 | XR_ITS ---
PROCEDURE INFORMATION: Exam: XR Chest Exam date and time: 01/09/2025 10:53 AM Age: 39 years old Clinical indication: Fever TECHNIQUE: Imaging protocol: Radiologic exam of the chest. Views: 2 views. COMPARISON: CT ABDOMEN PELVIS W CON 09/14/2023 5:32 AM FINDINGS: Lungs: Unremarkable. No consolidation. Pleural spaces: Unremarkable. No pleural effusion. No pneumothorax. Heart/Mediastinum: Unremarkable. No cardiomegaly. Bones/joints: Unremarkable. IMPRESSION: No acute findings.
[2025-01-09 10:40] LABS: Creatine Kinase 88 U/L (55-170)
[2025-01-09 10:44] LABS: Coronavirus 19, PCR Not Detected (NotDetected); Influenza A, PCR Not Detected (NotDetected); Influenza B, PCR Not Detected (NotDetected)
[2025-01-09] MEDS: LACTATED RINGERS 1000ML 2,470 ML 1235 ML IV (10:44)
[2025-01-09 10:45] LABS: Hemoglobin A1C 8.5 % (4.0-6.0); Troponin I < 0.01 ng/ml (0.00-0.034)
[2025-01-09 10:48] LABS: Bacteria,Urine Trace /lpf; RBC,Urine Occasional #/hpf (0-3); WBC,Urine Occasional #/hpf (0-3)
[2025-01-09 10:57] LABS: Lipase 60 U/L (23-300)
[2025-01-09 10:58] LABS: Procalcitonin 0.780 ng/mL (0.0-2.0); T4 (Thyroxine) 9.3 ug/dl (5.53-11.0)
--- NOTE | 2025-01-09 11:03 | PC.NURSE ---
pt going for CT and xrays at this time via wheelchair with ear mold laboratory technician
[2025-01-09 11:11] LABS: Thyroid Stimulating Hormone 0.84 uIU/mL (0.465-4.68)
[2025-01-09] MEDS: IOPAMIDOL-370 (76%);100ML BOTTLE 75 ML IV (11:11)
[2025-01-09] MEDS: SODIUM CHLORIDE 0.9% 10ML SYR (RAD ONLY) 10 ML IV (11:11)
--- NOTE | 2025-01-09 11:14 | PC.NURSE ---
pt back from CT and xrays at this time via wheelchair via [employer]
[2025-01-09 11:29] LABS: Hepatitis C Ab Qual. W/ RFX NEGATIVE (Negative)
--- NOTE | 2025-01-09 12:40 | HMH.EDGENADL ---
Discharge Plan Disposition Patient Disposition: Admitted Condition: Good Clinical Impressions Clinical Impression: SIRS (systemic inflammatory response syndrome), Fever, Transaminitis, Hyperbilirubinemia Discharge ED Provider: Tamika Cordova General Adult HPI General Chief complaint: Fever Stated complaint: 104 fever x 2 days, high Sugar Time Seen by Provider: 01/09/25 10:18 Mode of Arrival: Ambulatory Source of Information: Patient Description of Symptoms (Recalled from ER Triage Doc. by RN): pt reports fevers,feeling weak. urine is noted to be dark. he is diabetic. hasnt been eating well and has been outside in the heat History of Present Illness HPI narrative: This patient is a 39-year-old male with a history of diabetes, hypertension, and prior history of kidney stones presenting to the emergency department for evaluation with concern for high fevers, general weakness, dark urine, and generally feeling unwell. 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 He notes that he got overheated, came inside and slept for several hours, and then noted that he woke up with a fever of 104 ?F. He did not have any significant pain anywhere, no cough, congestion, vomiting, changes in bowel movements, or other infectious symptoms. He stated that overall he just had the fever and really bad sweats. He notes that anytime he breaks his fever he breaks out in a cold sweat. He states that he is not sure if he has an infection, is dehydrated, or what is going on. He does note that he is not been eating very well. No other concerns or complaints noted. Related Data Previous Rx's ?Medication ?Instructions ?Recorded glipizide 5 mg tablet 5 mg PO DAILY #30 tabs 09/16/23 metformin 500 mg tablet 500 mg PO BID 30 days #60 tabs 09/16/23 cefdinir 300 mg capsule 300 mg PO BID 4 days #8 caps 09/17/23 Allergies Allergy/AdvReac Type Severity Reaction Status Date / Time No Known Allergies Allergy Verified 05/31/23 12:11 [facility] Disclaimer: The information contained in this section may have been updated after the patient was seen, as this information can be updated by other users. Medical History Generalized anxiety disorder History of kidney stones Hypertension Surgical History History of tonsillectomy Family History Other Family history of diabetes mellitus Family history of heart attack Social History Smoking Status: Never smoker how long ago did patient quit smokin years ago; moved to a vape second hand exposure: No alcohol intake: never counseling given: No substance use type: denies use current occupational status: employed Travel in the last 8 weeks?: None adopted: No caregiver/support person: No foster care: No household members: family housing: house lives independently: Yes marital status: number of children: 3 number of grandchildren: 0 education level: high school service: No fdc: No current occupation: at the [employer] department Hx Recent Travel: No sexually active: Yes working smoke detector in home: Yes fire extinguisher in home: Yes carbon monox detector in home: No firearms in home: Yes firearms unloaded and locked: Yes Have you lived/traveled outside US in past 30 days?: No Contact w/someone who lives/traveled outside US past 30 days?: No Exposure to someone with infectious disease in past 14 days?: No Do you have a fever (greater than 100.4 F or 38 C)?: No Have you tested positive for COVID-19?: No Exposed to someone with COVID-19 in past 14 days?: No Do you have a sore throat?: No Do you have a cough?: No Do you have any weakness?: No Do you have any diarrhea?: No Are you experiencing any unusual bleeding?: No Do you have any muscle aches/pain?: No Do you have any abdominal pain?: No Are you experiencing loss of taste or smell?: No Other Medical History Have you received the Flu Vaccine for this season: No Have you received the Pneumonia Vaccine: No ROS Obtained: Yes All systems reviewed & no additional complaints except as documented Physical Exam General General appearance: alert Comment: Diaphoretic, ill-appearing Head Head exam: atraumatic and normocephalic Eye Eye exam: Present normal appearance, PERRL and EOMI ENT ENT exam: Present normal exam, normal oropharynx, mucous membranes moist and normal external ear exam Neck Neck exam: Present normal inspection, full ROM and trachea midline; Absent tenderness Chest Chest inspection: Present normal inspection and symmetric chest wall rise; Absent tenderness Respiratory Respiratory exam: Present normal lung sounds bilaterally; Absent respiratory distress, wheezes, stridor or accessory muscle use Cardiovascular Cardiovascular exam: Present normal rhythm and tachycardia Abdominal Exam Abdominal exam: Present soft; Absent distention, tenderness or guarding Extremities Exam Extremities exam: Present normal inspection, full ROM and normal capillary refill; Absent tenderness or edema Back Exam Back exam: Present normal inspection and full ROM; Absent tenderness Neurological Exam Neurological exam: Present alert, oriented X3, CN II-XII intact and normal gait; Absent motor sensory deficit Psychiatric Psychiatric exam: Present normal affect and normal mood Skin Skin exam: Present diaphoresis Medical Decision Making Medical Records Medical records reviewed: Yes I reviewed the patient's medical records. Screening: Per USPSTF and CDC recommendations, given the prevalence of disease in our region, it is our hospital?s policy to screen for HIV and viral Hepatitis for all patients aged 18 and over and those with ongoing risk factors. Marky Inquiry Pt receiving controlled substance: No Vital Signs: 01/09/25 10:07 01/09/25 10:45 01/09/25 11:59 Temperature 99.3 F Temperature Source Oral Pulse Rate 104 H 75 Pulse Rate [Right] 108 H Respiratory Rate 20 20 16 Blood Pressure 150/85 H 105/63 L Blood Pressure [Right Arm] 137/80 Blood Pressure Mean 68 Blood Pressure Mean [Right Arm] 99 02 Sat by Pulse Oximetry 98 98 96 Oxygen Delivery Method Room Air Room Air 01/09/25 12:30 01/09/25 13:00 Temperature Temperature Source Pulse Rate 72 74 Pulse Rate [Right] Respiratory Rate 16 16 Blood Pressure 122/67 126/72 Blood Pressure [Right Arm] Blood Pressure Mean Blood Pressure Mean [Right Arm] 02 Sat by Pulse Oximetry 96 100 Oxygen Delivery Method Room Air Room Air Lab Data Lab results reviewed: Yes I reviewed the patient's lab results. Lab Results 01/09/25 10:05: Urine Color Yellow, Urine Appearance Clear, Urine pH 6.0, Ur Specific [place] 1.025, Urine Protein 2+ A, Urine Glucose (UA) 1+, Urine Ketones 2+, Urine Blood Trace-i, Urine Nitrate Negative, Urine Bilirubin 1+ A, Urine Urobilinogen 4.0, Ur Leukocyte Esterase Negative, Urine RBC Occasional, Urine WBC Occasional, Ur Squamous Epith Cells 3-5, Urine Bacteria Trace 01/09/25 10:15: WBC 17.3 H, RBC 5.70, Hgb 16.4, Hct 46.2, MCV 81.1, MCH 28.8, MCHC 35.5 H, RDW 12.3, Plt Count 228, MPV 8.5, Neut % (Auto) 85.7 H, Lymph % (Auto) 4.7 L, [place] % (Auto) 8.5, Eos % (Auto) 0.1, Baso % (Auto) 0.3, Neut # (Auto) 14.9 H, Lymph # (Auto) 0.8, [place] # (Auto) 1.5 H, Eos # (Auto) 0.0, Baso # (Auto) 0.1, VBG pH 7.42 H, VBG pCO2 36.5, VBG pO2 42.9 H, VBG HCO3 23.3, VBG Total CO2 24.4, VBG O2 Saturation 82.0 H, VBG Base Excess -1.1, VBG Lactic Acid 2.8 H, Sodium 133 L, Potassium 4.1, Chloride 93 L, Carbon Dioxide 27, Anion Gap 17.1 H, BUN 15, Creatinine 1.10, Estimated Creat Clear 134, Estimated GFR 75, Est GFR ( Amer) 91, Glucose 243 H, Hemoglobin A1c 8.5 H, Lactate 2.4 H, Calcium 9.4, Total Bilirubin 2.3 H, AST 62 H, ALT 85 H, Alkaline Phosphatase 138 H, Total Creatine Kinase 88, Troponin I < 0.01, Total Protein 8.3 H D, Albumin 4.8, Globulin 3.5 H, Albumin/Globulin Ratio 1.4, Lipase 60, Procalcitonin 0.780, TSH 0.84, Thyroxine (T4) 9.3, Acetone Level None detected, HCV Ab LUBNA w/Rflx PCR Qn Negative, HIV Ag/Ab Combo Qual Negative 01/09/25 10:40: SARS-CoV-2 (PCR) Not detected, Influenza A Untype (PCR) Not detected, Influenza Type B (PCR) Not detected 01/09/25 10:15 01/09/25 10:15 Orders (Tests/Meds): ED MEDICATIONS Discontinued Medications Generic Name Dose Route Start Last Admin Trade Name Lee PRN Reason Stop Dose Admin Lactated Ringer's 2,470 mls @ 1,235 mls/hr 01/09/25 10:37 01/09/25 10:44 Lactated Ringer's 1000 Ml Bag 30 ml/kg infuse over 2 hr (2470 ml) 01/09/25 12:36 1,235 mls/hr IV Administration .Q2H ONE Piperacillin Sod/Tazobactam 50 mls @ 100 mls/hr 01/09/25 13:15 01/09/25 13:27 Sod 3.375 gm/ Sodium Chloride IV 01/09/25 13:44 100 mls/hr ONCE ONE Administration Iopamidol 75 ml 01/09/25 11:10 01/09/25 11:11 Iopamidol-370 (76%);100ml Bottle IV 01/09/25 11:11 75 ml ONCE ONE Administration Sodium Chloride 10 ml 01/09/25 11:10 01/09/25 11:11 Sodium Chloride 0.9% 10ml Syr (Rad Only) IV 01/09/25 11:11 10 ml ONCE ONE Administration ORDERS Category Date Time Status CT abdomen pelvis w con Stat Cat Scan 01/09/25 10:37 Completed CXR 2 view (NOT portable) [XR chest 2V] Stat Exams 01/09/25 10:37 Completed POCUS Point of Care (ER Only) Stat Exams 01/09/25 12:10 Completed Acetone, Serum (Rapid) Stat Lab 01/09/25 10:15 Completed CK [Creatine Kinase] Stat Lab 01/09/25 10:15 Completed Complete Blood Count Auto Diff Stat Lab 01/09/25 10:15 Completed Comprehensive Metabolic Panel Stat Lab 01/09/25 10:15 Completed Full Resp Panel w/COVID ([facility]) Routine Lab 01/09/25 13:47 Ordered HIV Combo Stat Lab 01/09/25 10:15 Completed Hemoglobin A1C Stat Lab 01/09/25 10:15 Completed Hepatitis C Ab Qual. W/ RFX Stat Lab 01/09/25 10:15 Completed Lactic Acid Stat Lab 01/09/25 10:15 Completed Lipase Stat Lab 01/09/25 10:15 Completed Procalcitonin Stat Lab 01/09/25 10:15 Completed Rapid PCR Covid and Flu A/B Stat Lab 01/09/25 10:40 Completed T4 (Thyroxine) Stat Lab 01/09/25 10:15 Completed TSH [Thyroid Stimulating Hormone] Stat Lab 01/09/25 10:15 Completed Troponin I Stat Lab 01/09/25 10:15 Completed UA [Urinalysis and Microscopic] Stat Lab 01/09/25 10:05 Completed Blood Culture Stat Micro 01/09/25 10:39 Received VBG [Venous Blood Gas] Stat RT 01/09/25 10:15 Completed Medical Decision Narrative: In summary, this patient is a 39-year-old man presenting to the Emergency Department for evaluation of fevers, weakness, generally feeling unwell, dark urine. Differential diagnoses considered include but are not limited to sepsis, heat exhaustion, viral syndrome, dehydration, rhabdomyolysis, cholecystitis, cystitis. Ruling out the most morbid conditions drove assessment. It should be noted patient's history includes diabetes and hypertension which may or may not be at goal therapy. This complicates all aspects of care by increasing patient's risk for morbidity. I reviewed patient's past medical records and noted prior admission for [facility] and acute pyelonephritis in the past. On exam, the patient is diaphoretic, tachycardic, tachypneic, and has had fevers at home. Given this, concerns for sepsis. Sepsis workup was ordered including blood cultures as well as infectious workup such as respiratory panel, chest x-ray,, urinalysis. He was given sepsis bolus of IV fluids. He is not in any pain currently and declines need for pain medication. Labs obtained demonstrate concerns for leukocytosis, elevated lactic acid, transaminitis, and hyperbilirubinemia. Given these things, added on CT abdomen pelvis with IV contrast to evaluate for acute biliary pathology. I independently interpreted CT scan and x-ray prior to the radiologist read and noted obvious acute infectious pathology. Please see their read for final interpretation. Labs were obtained that demonstrated leukocytosis, elevated lactic acid, neutrophilic predominance. All these things are concerning for possible infectious etiology, though procalcitonin is reassuring. CK is normal. He has mild transaminitis and hyperbilirubinemia with a normal lipase. He has no abdominal pain or tenderness and has had no nausea or vomiting. Is possible this all could be from heat exposure versus viral syndrome versus dehydration, but cannot exclude sepsis. Given this, IV Zosyn was added onto sepsis bolus of IV fluids. He declines need for pain medication or other medications, as he is not having any symptoms. I performed bedside ultrasound and noted some gallbladder sludge with no gallbladder wall thickening, no pericholecystic fluid, negative sonographic Gardner sign.. Given that he SIRS positive with blood cultures pending, I had an interactive discussion with the hospitalist who admitted the patient in stable condition pending blood cultures. Procedures Risk/Benefits of Procedure(s) Were Explained: Yes Limited Ultrasound Findings:: Limited RUQ ultrasound Indication: Fever, transaminitis Identified structures: -Gallbladder -Gallbladder wall -Liver Findings: Sonographic Gardner sign: Absent Gallstones: Absent Sludge: Present Pericholecystic fluid: Absent Maximal GB wall thickness (mm): [normal is </= 3mm] Normal Gallbladder width (cm): [normal is < 4cm] Normal Gallbladder length (cm): [normal is < 10cm] Normal Impression: Gallbladder sludge with no pericholecystic fluid, gallbladder wall thickening, or sonographic Gardner sign. Images were saved to permanent archive The study was technically adequate CPT 33396-92 This study was performed by me, and I personally interpreted all images/videos. Based on my clinical judgement, these images were adequate and did not necessitate further imaging. Critical Care Critical Care Time Critical Care Time: No
[2025-01-09] MEDS: PIPERACILLIN/TAZO 3.375 GM in 0.9 % SODIUM CHLORIDE 50 ML IV ×2 (13:27→22:18)
--- NOTE | 2025-01-09 13:28 | PC.NURSE ---
Administered medication to patioent, verified patient via bracelet, also verified allergies with patient.
--- NOTE | 2025-01-09 13:46 | PC.NURSE ---
supervisor throwing department contacted for a bed.
--- NOTE | 2025-01-09 14:02 | PC.NURSE ---
report called to Kayley ARRIAGA
[2025-01-09 14:13] LABS: Adenovirus,PCR Not Detected (NotDetected); Chlamydophila Pneumoniae, PCR Not Detected (NotDetected); Coronavirus 19, PCR Not Detected (NotDetected); Coronovirus HKU1,PCR Not Detected (NotDetected); Influenza A, PCR Not Detected (NotDetected); Influenza AH1, 2009 Not Detected (NotDetected); Influenza AH1, PCR Not Detected (NotDetected); Influenza AH3,PCR Not Detected (NotDetected); Influenza B, PCR Not Detected (NotDetected); Mycoplasma Pneumoniae, PCR Not Detected (NotDetected); Parainfluenza 1, PCR Not Detected (NotDetected); Parainfluenza 2, PCR Not Detected (NotDetected); Parainfluenza 3, PCR Not Detected (NotDetected); Parainfluenza 4, PCR Not Detected (NotDetected)
[2025-01-09 14:37] LABS: Reflex Lactic Add Lactic Reflex
--- NOTE | 2025-01-09 14:46 | P.HP_ITS ---
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 Patient was very fatigued after this exercise, went home and sle pt. Apparently woke up with a fever of 104 Fahrenheit, and has been having persistent fevers around 104 Fahrenheit since then. Fever this morning was 103.8 Fahrenheit per significant other at bedside. Denies fever/chills, shortness of breath, abdominal pain, constipation/diarrhea, urinary symptoms. No recent sick contacts. No recent medication changes, recreational drug use. No skin lesions. Patient was in good health prior to 2 days. Workup in the ED significant for WBC 17.3 with neutrophilic shift, AGAP 17.1, slight transaminitis. No fevers in the ED. Case discussed by ED provider and, given patient has had persistent fevers with leukocytosis, decision was made to admit patient for further evaluation and management and to clear blood cultures. [facility] Disclaimer: The information contained in this section may have been updated after the patient was seen, as this information can be updated by other users. Medical History Generalized anxiety disorder History of kidney stones Hypertension Surgical History History of tonsillectomy Family History Other Family history of diabetes mellitus Family history of heart attack Social History Smoking Status: Never smoker how long ago did patient quit smokin years ago; moved to a vape second hand exposure: No alcohol intake: never counseling given: No substance use type: denies use current occupational status: employed Travel in the last 8 weeks?: None adopted: No caregiver/support person: No foster care: No household members: family housing: house lives independently: Yes marital status: number of children: 3 number of grandchildren: 0 education level: high school service: No fci: No 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 Hx Recent Travel: No sexually active: Yes working smoke detector in home: Yes fire extinguisher in home: Yes carbon monox detector in home: No firearms in home: Yes firearms unloaded and locked: Yes Have you lived/traveled outside US in past 30 days?: No Contact w/someone who lives/traveled outside US past 30 days?: No Exposure to someone with infectious disease in past 14 days?: No Do you have a fever (greater than 100.4 F or 38 C)?: No Have you tested positive for COVID-19?: No Exposed to someone with COVID-19 in past 14 days?: No Do you have a sore throat?: No Do you have a cough?: No Do you have any weakness?: No Do you have any diarrhea?: No Are you experiencing any unusual bleeding?: No Do you have any muscle aches/pain?: No Do you have any abdominal pain?: No Are you experiencing loss of taste or smell?: No Other Medical History Have you received the Flu Vaccine for this season: No Have you received the Pneumonia Vaccine: No Meds Home Medications and Allergies Home Medications ?Medication ?Instructions ?Recorded ?Confirmed ?Type metformin 500 mg tablet 500 mg PO BID 30 days #60 ta bs 09/16/23 01/09/25 Rx New Prescriptions to Start Prescriptions: Allergies Allergy/AdvReac Type Severity Reaction Status Date / Time No Known Allergies Allergy Verified 05/31/23 12:11 Exam Data for Last 24 hours Vital signs and Labs for Last 24 Hours: Temp Pulse Resp BP Pulse Ox O2 Del Method 99.3 F 81 13 148/93 H 99 Room Air 01/09/25 10:07 01/09/25 14:00 01/09/25 14:00 01/09/25 14:00 01/09/25 14:00 01/09/25 14:00 Laboratory Results - last 24 hr 01/09/25 10:05: Urine Color Yellow, Urine Appearance Clear, Urine pH 6.0, Ur Specific [place] 1.025, Urine Protein 2+ A, Urine Glucose (UA) 1+, Urine Ketones 2+, Urine Blood Trace-i, Urine Nitrate Negative, Urine Bilirubin 1+ A, Urine Urobilinogen 4.0, Ur Leukocyte Esterase Negative, Urine RBC Occasional, Urine WBC Occasional, Ur Squamous Epith Cells 3-5, Urine Bacteria Trace 01/09/25 10:15: WBC 17.3 H, RBC 5.70, Hgb 16.4, Hct 46.2, MCV 81.1, MCH 28.8, MCHC 35.5 H, RDW 12.3, Plt Count 228, MPV 8.5, Neut % (Auto) 85.7 H, Lymph % (Auto) 4.7 L, [place] % (Auto) 8.5, Eos % (Auto) 0.1, Baso % (Auto) 0.3, Neut # (Auto) 14.9 H, Lymph # (Auto) 0.8, [place] # (Auto) 1.5 H, Eos # (Auto) 0.0, Baso # (Auto) 0.1, VBG pH 7.42 H, VBG pCO2 36.5, VBG pO2 42.9 H, VBG HCO3 23.3, VBG Total CO2 24.4, VBG O2 Saturation 82.0 H, VBG Base Excess -1.1, VBG Lactic Acid 2.8 H, Sodium 133 L, Potassium 4.1, Chloride 93 L, Carbon Dioxide 27, Anion Gap 17.1 H, BUN 15, Creatinine 1.10, Estimated Creat Clear 134, Estimated GFR 75, Est GFR ( Amer) 91, Glucose 243 H, Hemoglobin A1c 8.5 H, Lactate 2.4 H, Calcium 9.4, Total Bilirubin 2.3 H, AST 62 H, ALT 85 H, Alkaline Phosphatase 138 H, Total Creatine Kinase 88, Troponin I < 0.01, Total Protein 8.3 H D, Albumin 4.8, Globulin 3.5 H, Albumin/Globulin Ratio 1.4, Lipase 60, Procalcitonin 0.780, TSH 0.84, Thyroxine (T4) 9.3, Acetone Level None detected, HCV Ab LUBNA w/Rflx PCR Qn Negative, HIV Ag/Ab Combo Qual Negative 01/09/25 10:40: SARS-CoV-2 (PCR) Not detected, Influenza A Untype (PCR) Not detected, Influenza Type B (PCR) Not detected I & O for Last 24 hours: Intake & Output 01/06/25 01/07/25 01/08/25 01/09/25 23:59 23:59 23:59 23:59 Weight 104.326 kg Constitutional Constitutional: no acute distress *Routine HEENT Exam Head: Present normocephalic Eye: Present EOMI and PERRL ENT: Present mucous membranes moist *Routine Neck Exam Neck: Present supple; Absent lymphadenopathy *Routine Respiratory Exam Respiratory: Present CTA bilaterally *Routine Cardiovascular Exam Cardiovascular: Present RRR *Routine Abdominal Exam Abdominal: Present soft and normoactive bowel sounds; Absent tenderness *Routine Rectal Exam Rectal:: deferred *Routine Genitalia Exam Genitalia:: deferred *Routine Extremities Exam Extremities: Absent cyanosis, clubbing or edema *Routine Skin Exam Skin: Present warm; Absent rash *Routine Neurological Exam Neurological: Present alert and oriented X3 Assessment and Plan *Assessment and plan (1) Hyperbilirubinemia: Status: Acute Category: Medical Code(s): E80.6 - Other disorders of bilirubin metabolism (2) Transaminitis: Status: Acute Category: Medical Code(s): R74.01 - Elevation of levels of liver transaminase levels (3) Fever: Status: Acute Category: Medical Code(s): R50.9 - Fever, unspecified Plan 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 Patient was very fatigued after this exercise, went home and slept. Apparently woke up with a fever of 104 Fahrenheit, and has been having persistent fevers around 104 Fahrenheit since then. Fever this morning was 103.8 Fahrenheit per significant other at bedside. Denies fever/chills, shortness of breath, abdominal pain, constipation/diarrhea, urinary symptoms. No recent sick contacts. No recent medication changes, recreational drug use. No skin lesions. Patient was in good health prior to 2 days. Workup in the ED significant for WBC 17.3 with neutrophilic shift, AGAP 17.1, slight transaminitis. No fevers in the ED. Case discussed by ED provider and, given patient has had persistent fevers with leukocytosis, decision was made to admit patient for further evaluation and management and to clear blood cultures. #Fever of unknown origin #SIRS #Leukocytosis #Transaminitis ? 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 Initial WBC 17.3 with neutrophilic shift. Initial workup unremarkable for infection. Respiratory panel normal. ? CK surprisingly normal. Patient does have slight transaminitis, elevated AST/ALT/ALP/total bilirubin 62/85/138/2.3. No abdominal tenderness. ? Continue Zosyn empirically pending further workup. ? Follow-up hepatitis panel. ? If persistent transaminitis and fevers, follow-up RUQ ultrasound on Saturday. ? Follow-up blood cultures. #Type 2 diabetes ? Hemoglobin A1c 8.5%. ? Continue home metformin. ? LDSSI, ACHS glucose checks. Full code DVT prophylaxis: Lovenox 40 mg
[2025-01-09] MEDS: ONDANSETRON 4MG/2ML VIAL 4 MG IV ×2 (15:00→20:22)
[2025-01-09 15:47] LABS: Lactic Acid Follow Up (RFLX 1) 3.4 mmol/L (0.7-2.1)
[2025-01-09] MEDS: ACETAMINOPHEN 325MG TAB 650 MG PO ×2 (16:00→20:21)
[2025-01-09] MEDS: humaLOG 100 UNITS/ML 10ML VIAL (SSI) SUBCUT ×2 (16:03→20:24)
[2025-01-09 16:05] LABS: POC Glucose,Bedside 194 (70-110)
[2025-01-09 17:28] LABS: Reflex Lactic (2 hrs) Add Lactic Reflex
[2025-01-09 18:45] LABS: Lactic Acid Follow up (RFLX 2) 1.2 mmol/L (0.7-2.1)
[2025-01-09] MEDS: METFORMIN 500MG TABLET 500 MG PO (20:21)
[2025-01-09 20:47] LABS: POC Glucose,Bedside 203 (70-110)
[2025-01-09] MEDS: KETOROLAC 30MG/ML VIAL 15 MG IV (21:12)
[2025-01-09] MEDS: 0.9 % SODIUM CHLORIDE 1000ML 1,000 ML 150 ML IV (21:17)
--- NOTE | 2025-01-09 21:36 | EXP.EVENT.NO ---
Problem: Continue temperature of 100 and 405., Patient is alert and oriented and has wet rags on him fan blowing.. Recent admission with fever of unknown origin. 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 Patient is alert and oriented talking with him and his long-term girlfriend no one else he knows that is sick the girlfriend says that she is healthy. Talked with the patient he has no known tick bites. Had no sores or any signs of abscesses anywhere on his body head he states. And do does not believe he has been bitten by mosquitoes. 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 Unsure if this would have caused some type of exacerbation of his underlying diabetes mellitus that is caused his sugars to increase on top of the fact that he has developed a fever. Will continue to look for source of fever being infectious at this time Patient notes that he has been exam: Exam heart rate is normal sounds but slightly elevated skin is pink warm and dry he is exposed only under a sheet covering his waist down does have wet towels up on his forehead shoulders and fan is blowing. Patient is alert oriented moves his neck well no signs of rigidity no signs of any significant headache. There is no signs of confusion Patient speaks well good historian at this time went over history very nicely. Lungs are also clear Plan: Patient has received Zosyn in the ER this will continue has been ordered also will add doxycycline in case there is a tickborne related disease related to this question some other environmental infection instead of being exposed to a virus of unknown origin. Neutrophils are elevated lymphs are down.. Have also added besides Tylenol p.o. talk to the nurse that I have added IV acetaminophen not to overdose. Noting liver functions are just slightly elevated. That the patient by exam shows that he has diabetes approximately 2 years that has been treated also has fatty liver.. Will also add Toradol for fever control also. IV fluids have been started at 150 cc an hour vital signs are relatively stable heart rate slightly elevated Will also check GGT and lipase. Examination of CT scan and chest x-ray shows no focal source of infection. Question bacterial versus viral infection. Not able to rule out looking for further in the future would be Lyme disease question malaria and recheck for COVID and flu if fever continues.
[2025-01-09] MEDS: DOXYCYCLINE HYCLATE 100 MG in 0.9 % SODIUM CHLORIDE 250 ML 166.667 MG IV (22:58)
[2025-01-10] VITALS (16 sets, daily range): BP systolic 115–172; BP diastolic 64–95; PULSE 83–98; RESP 14–21; TEMP 36.5–39.9; O2SAT 96–99; BMI 30.5
[2025-01-10] MEDS: ACETAMINOPHEN 1,000MG/100ML VIAL 1000 MG IV (02:11)
[2025-01-10] MEDS: KETOROLAC 30MG/ML VIAL 15 MG IV ×3 (05:55→19:53)
[2025-01-10] MEDS: humaLOG 100 UNITS/ML 10ML VIAL (SSI) SUBCUT ×3 (05:56→21:20)
[2025-01-10 06:22] LABS: POC Glucose,Bedside 184 (70-110)
--- NOTE | 2025-01-10 06:30 | PC.NURSE ---
Pt is alert and oriented x4 and tolerating RA well. Pt did run a fever of 103.5 (rectal) @ 2020. Active cooling was initiated and fever reducing meds were given pt temp did finally break approx @ 2200. Pt cultures are steal pending. Pt has tolerating IV antibiotics well this shift and denies other symptoms.
[2025-01-10] MEDS: PIPERACILLIN/TAZO 3.375 GM in 0.9 % SODIUM CHLORIDE 50 ML IV ×2 (06:50→13:26)
[2025-01-10] MEDS: 0.9 % SODIUM CHLORIDE 1000ML 1,000 ML 150 ML IV ×2 (06:50→21:21)
[2025-01-10 07:34] LABS: Alanine Aminotransferase 73 U/L (12-78); Albumin Level 3.5 g/dl (3.5-5.0); Albumin/Globulin Ratio 1.3 (1.1-1.8); Alkaline Phosphatase 103 U/L (38-126); Anion Gap 16.4 mEq/L (5-15); Aspartate Amino Transferase 51 U/L (17-59); Bilirubin,Total 1.8 mg/dl (0.2-1.3); Blood Urea Nitrogen 12 mg/dl (9-20); Calcium 7.7 mg/dl (8.4-10.2); Carbon Dioxide 22 mmol/L (22.0-30.0); Chloride 97 mmol/L (98-107); Creatinine Clearance Estimated 153 mL/min (50-200); Creatinine,Serum 1.00 mg/dl (0.66-1.25); Estimated Glomerular Filt Rate 84 ml/min (>60); GFR (African American) 101 ML/MIN (>60); Globulin 2.6 g/dL (1.3-3.2); Glucose 162 mg/dl (74-100); Potassium 3.4 mmoL/L (3.5-5.1); Sodium 132 mmol/L (136-145); Total Protein,Serum 6.1 g/dl (6.3-8.2)
[2025-01-10 07:41] LABS: Nucleated Red Blood Cells % 0 %; White Blood Count 11.3 K/mm3 (4.8-10.8)
[2025-01-10 07:48] LABS: Gamma Glutamyl Transpeptidase 186 U/L (15-73)
[2025-01-10 07:57] LABS: Hematocrit 38.3 % (42.0-52.0); Immature Granulocytes % 0.3 %; Mean Corpuscular HGB Conc 35.0 g/dL (31.8-35.4); Mean Corpuscular Hemoglobin 28.6 pg (27.0-31.2); Mean Corpuscular Volume 81.7 fl (80-94); Platelet Count 164 K/mm3 (142-424); Red Blood Count 4.69 M/mm3 (4.60-6.20); Red Cell Distribution Width-SD 36.4 fL
[2025-01-10 07:59] LABS: Hemoglobin 13.4 g/dL (14.1-18.0)
[2025-01-10] MEDS: METFORMIN 500MG TABLET 500 MG PO ×2 (08:54→20:26)
[2025-01-10] MEDS: DOXYCYCLINE HYCLATE 100 MG in 0.9 % SODIUM CHLORIDE 250 ML 166.667 MG IV ×2 (08:55→21:21)
--- NOTE | 2025-01-10 09:32 | HMH.PHAINT1 ---
Pharmacy Intervention Comments: MEDICATION RECONCILIATION COMPLETE USING EXTERNAL PHARMACY FILL HISTORY.
[2025-01-10 09:34] LABS: Amphetamine/Metha Screen,Urine Negative ng/ml (<1000)
[2025-01-10 09:35] LABS: Barbiturates Screen,Urine Negative ng/ml (<200); Benzodiazepines Screen,Urine Negative ng/ml (<200)
[2025-01-10 09:37] LABS: Methadone Screen,Urine Negative ng/ml (<300)
[2025-01-10 09:38] LABS: Opiate Screen,Urine Negative ng/ml (<300)
[2025-01-10 09:39] LABS: Phencyclidine Screen,Urine Negative ng/ml (<25)
[2025-01-10] MEDS: ONDANSETRON 4MG/2ML VIAL 4 MG IV (11:34)
[2025-01-10] MEDS: ACETAMINOPHEN 325MG TAB 650 MG PO ×2 (11:39→16:06)
[2025-01-10 12:15] LABS: POC Glucose,Bedside 184 (70-110)
[2025-01-10 13:09] LABS: Monoscreen (Rapid) Negative (Negative)
--- NOTE | 2025-01-10 13:43 | CT_ITS ---
PROCEDURE INFORMATION: Exam: CT Chest Without Contrast; Diagnostic Exam date and time: 01/10/2025 1:56 PM Age: 39 years old Clinical indication: Fever; Additional info: Persistent fever TECHNIQUE: Imaging protocol: Diagnostic computed tomography of the chest without contrast. Radiation optimization: All CT scans at this facility use at least one of these dose optimization techniques: automated exposure control; mA and/or kV adjustment per patient size (includes targeted exams where dose is matched to clinical indication); or iterative reconstruction. COMPARISON: CR XR CHEST 2V 01/09/2025 10:53 AM FINDINGS: Lungs: Unremarkable. No consolidation. No masses. Pleural spaces: Unremarkable. No pneumothorax. No pleural effusion. Heart: No coronary artery calcification is identified No cardiomegaly. No pericardial effusion. Lymph nodes: Mediastinal and right hilar calcified nodes consistent with prior granulomatous disease Vasculature: Unremarkable. No aortic aneurysm. Bones/joints: Unremarkable. No acute fracture. Soft tissues: Unremarkable. IMPRESSION: No acute findings.
[2025-01-10 14:41] LABS: C-Reactive Protein 219.1 mg/L (0-4)
--- NOTE | 2025-01-10 15:06 | ECG_ITS ---
APPROVED REPORT Exam: Resting ECG HR:86 bpm ECG Measurements Heart Rate 86 AXES PA 152 P 28 QRSd 112 QRS 31 QT 348 T 28 QTc 391 Conclusion SINUS RHYTHM INCOMPLETE RIGHT BUNDLE BRANCH BLOCK [90+ ms QRS DURATION, TERMINAL R IN V1/V2, 40+ ms S IN I/aVL/V4/V5/V6] BORDERLINE ECG UNCONFIRMED REPORT Electronically signed by : Al Morales MD 01/13/2025 16:19:16
[2025-01-10] MEDS: POTASSIUM CHLORIDE 20MEQ TAB 40 MEQ PO ×2 (15:34→19:53)
[2025-01-10 16:55] LABS: POC Glucose,Bedside 150 (70-110)
--- NOTE | 2025-01-10 18:16 | P.PN_ITS ---
Subjective *Date: 01/10/25 *Time: 18:16 Interval history: Continues to have persistent fevers but improved to 101.8 Fahrenheit. Broad- spectrum workup so far unremarkable. Follow-up ECHO, RUQ ultrasound in the morning. N.p.o. at midnight for that. Continue Zosyn, doxycycline empirically. Exam Data for Last 24 hours Vital signs and Labs for Last 24 Hours: Temp Pulse Resp BP Pulse Ox O2 Del Method 101.8 F H 97 H 14 137/86 99 Room Air 01/10/25 15:39 01/10/25 12:00 01/10/25 12:00 01/10/25 12:00 01/10/25 12:00 01/10/25 17:10 Laboratory Results - last 24 hr 01/09/25 17:45: Lactate 1.2 01/09/25 20:18: POC Glucose 203 H 01/10/25 05:50: POC Glucose 184 H 01/10/25 07:00: WBC 11.3 H D, RBC 4.69, Hgb 13.4 L D, Hct 38.3 L, MCV 81.7, MCH 28.6, MCHC 35.0, RDW 12.3, Plt Count 164 D, MPV 9.1, Neut % (Auto) 84.0 H, Lymph % (Auto) 7.0 L, [place] % (Auto) 8.4, Eos % (Auto) 0.0 L, Baso % (Auto) 0.3, Neut # (Auto) 9.5 H, Lymph # (Auto) 0.8, [place] # (Auto) 1.0, Eos # (Auto) 0.0, Baso # (Auto) 0.0, Sodium 132 L, Potassium 3.4 L, Chloride 97 L, Carbon Dioxide 22, Anion Gap 16.4 H, BUN 12, Creatinine 1.00, Estimated Creat Clear 153, Estimated GFR 84, Est GFR ( Amer) 101, Glucose 162 H D, Calcium 7.7 L, Total Bilirubin 1.8 H, GGT 186 H, AST 51, ALT 73, Alkaline Phosphatase 103, Total Protein 6.1 L D, Albumin 3.5 D, Globulin 2.6, Albumin/Globulin Ratio 1.3, Monoscreen Negative 01/10/25 07:02: C-Reactive Protein 219.1 H 01/10/25 09:06: Urine Opiates Screen Negative, Urine Methadone Screen Negative, Ur Barbituates Screen Negative, Ur Phencyclidine Scrn Negative, Ur Amphetamines Screen Negative, U Benzodiazepines Scrn Negative, Urine Cocaine Screen Negative, U Marijuana (THC) Screen Negative 01/10/25 12:08: POC Glucose 184 H 01/10/25 16:40: POC Glucose 150 H I & O for Last 24 hours: Intake & Output 01/07/25 01/08/25 01/09/25 01/10/25 23:59 23:59 23:59 23:59 Intake Total 480 / 660 2322 / 2322 Output Total 400 / 400 1050 / 1050 Balance 80 / 260 1272 / 1272 Weight 105.772 kg 108.012 kg Microbiology Reports for the Last 24 Hours: Microbiology 01/09/25 10:39 Blood Blood Culture - Preliminary NO GROWTH AFTER 24 HOURS 01/09/25 10:30 Blood Blood Culture - Preliminary NO GROWTH AFTER 24 HOURS Constitutional Constitutional: no acute distress *Routine HEENT Exam Head: Present normocephalic Eye: Present EOMI and PERRL ENT: Present mucous membranes moist *Routine Neck Exam Neck: Present supple; Absent lymphadenopathy *Routine Respiratory Exam Respiratory: Present CTA bilaterally *Routine Cardiovascular Exam Cardiovascular: Present RRR *Routine Abdominal Exam Abdominal: Present soft and normoactive bowel sounds; Absent tenderness *Routine Extremities Exam Extremities: Absent cyanosis, clubbing or edema *Routine Skin Exam Skin: Present warm; Absent rash *Routine Neurological Exam Neurological: Present alert and oriented X3 Assessment and Plan *Assessment and plan (1) Hyperbilirubinemia: Status: Acute Category: Medical Code(s): E80.6 - Other disorders of bilirubin metabolism (2) Transaminitis: Status: Acute Category: Medical Code(s): R74.01 - Elevation of levels of liver transaminase levels (3) Fever: Status: Acute Category: Medical Code(s): R50.9 - Fever, unspecified Plan Martinez 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 Patient was very fatigued after this exercise, went home and slept. Apparently woke up with a fever of 104 Fahrenheit, and has been having persistent fevers around 104 Fahrenheit since then. Fever this morning was 103.8 Fahrenheit per significant other at bedside. Denies fever/chills, shortness of breath, abdominal pain, constipation/diarrhea, urinary symptoms. No recent sick contacts. No recent medication changes, recreational drug use. No skin lesions. Patient was in good health prior to 2 days. Workup in the ED significant for WBC 17.3 with neutrophilic shift, AGAP 17.1, slight transaminitis. No fevers in the ED. Case discussed by ED provider and, given patient has had persistent fevers with leukocytosis, decision was made to admit patient for further evaluation and management and to clear blood cultures. #Fever of unknown origin #SIRS #Leukocytosis #Transaminitis ? 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 Initial WBC 17.3 with neutrophilic shift. Initial workup unremarkable for infection. Respiratory panel normal. ? CK surprisingly normal. Patient did initially have slight transaminitis, elevated AST/ALT/ALP/total bilirubin 62/85/138/2.3. Resolving today. No abdominal tenderness. ? Low suspicion for meningitis, patient has no nuchal rigidity, headache, encephalopathy. Patient is also asymptomatic, denies chest pain, shortness of breath, abdominal pain, headache, urinary symptoms. ? Blood cultures NGTD 24 hours. Respiratory panel, monotest normal. No skin lesions. UA, CT abdomen/pelvis, CXR unremarkable. Procalcitonin normal. ? CRP 219.1 today, follow-up CRP and ESR in the morning. ? Continue Zosyn, doxycycline empirically pending further workup. ? Follow-up CT chest. ? Follow-up ECHO tomorrow to rule out myocarditis. EKG without acute changes. ? Follow-up RUQ ultrasound to further evaluate transaminitis. N.p.o. at midnight. ? Follow-up hepatitis panel. #Type 2 diabetes ? Hemoglobin A1c 8.5%. ? Continue home metformin. ? LDSSI, ACHS glucose checks. Full code DVT prophylaxis: Lovenox 40 mg
--- NOTE | 2025-01-10 18:25 | PC.NURSE ---
pt is A&Ox4. pt has ran a fever off and on throughout shift. has had tylenol and toradol and using ice packs and cool rags for fever. getting IV antibiotics also. no other needs at this time. call light within reach.
[2025-01-10 21:39] LABS: POC Glucose,Bedside 240 (70-110)
[2025-01-10] MEDS: VANCOMYCIN HCL 2,000 MG in 0.9 % SODIUM CHLORIDE 250 ML 125 MG IV (23:14)
[2025-01-10] MEDS: PROMETHAZINE 25MG TABLET 25 MG PO (23:43)
[2025-01-11 02:39] VITALS: TEMP 37.3
[2025-01-11 04:00] VITALS: BP 131/57; PULSE 94; RESP 19; TEMP 37.4; O2SAT 97; BMI 31.3
[2025-01-11] MEDS: ACETAMINOPHEN 325MG TAB 650 MG PO ×2 (04:12→14:14)
[2025-01-11] MEDS: humaLOG 100 UNITS/ML 10ML VIAL (SSI) SUBCUT (05:39)
--- NOTE | 2025-01-11 06:00 | CA_ITS ---
APPROVED REPORT EXAM: Comprehensive 2D, Doppler, and color-flow Echocardiogram Filling Hauler Weaving: Ximena Forte RT(R) Ht: 6 ft 2 in Wt: 233lbs BSA: 2.32 BP: 137/86 mmHg Indications: persistent fever, DM, fatigue 2D Dimensions Left Atrium 4.05 cm M: 3.0 - 4.0 LVEF (Varghese's) 52.10 % M: 52 - 72 LVOT 1.94 cm (M/F) 1.5-2.5 LV Volume 114.50 mL M: 62 - 150 LV Volume Index 49.4 mL/m2 M: 34 - 74 LA Volume 37.40 mL LA Volume Index 16.12 mL/m2 (M/F) 16-34 EF AP4 50.60 % EF AP2 51.9 % EF BP 52.1 % GL Strain -20.2 % M-Mode Dimensions RVDd 2.78 cm (0.9-2.6) LVDd 5.50 cm (3.5-5.7) Ao Diam 2.76 cm (2.0-3.7) LVDs 4.10 cm (3.5-5.7) IVSd 0.86 cm (0.6-1.1) PWd 0.86 cm (0.6-1.1) EF (Teich) 49.70% FS 25.50% EDV (Teich) 147.40 mL ESV (Teich) 74.20 mL LV Diastology E Decel Time 311 (160-240 msec) E/A Ratio 1.4 MED E' 8.8 (>= 7 cm/sec) E'/MED E' Ratio 8.87 (<= 14) LAT E' 12.4 (>= 10 cm/sec) E/LAT E' Ratio 6.30 (<= 14) Mitral Valve MV E Max Andrew. 78.0 (40-130 cm/s) MV A Velocity 56.0 (40-130 cm/s) E/A Ratio 1.40 MV Decel. Time 311 (160-240 ms) Left Ventricle The left ventricle is normal size. The left ventricular systolic function is normal. The left ventricular ejection fraction is within the normal range. There is normal left ventricular wall thickness. There is normal LV segmental wall motion. The left ventricular diastolic function is normal. LVEF is 50-55%. Right Ventricle The right ventricle is normal size. The right ventricular systolic function is normal. Atria The left atrium size is normal. The right atrium size is normal. There is indeterminate color Doppler evidence of interatrial shunt. Aortic Valve The aortic valve opens well. There is no aortic valvular stenosis. No aortic regurgitation is present. There is no aortic valvular vegetation. Mitral Valve The mitral valve is normal in structure. No evidence of mitral valve stenosis. Trace mitral regurgitation. There is no evidence of mitral valve vegetations. Tricuspid Valve Tricuspid valve is grossly normal in structure and function. There is no tricuspid valve stenosis. Mild tricuspid regurgitation. There is no tricuspid valve vegetations. Pulmonic Valve The pulmonary valve is normal in structure. Trace pulmonic regurgitation. There is no pulmonic valve vegetations. Great Vessels The aortic root is normal in size. IVC is normal in size and collapses >50% with inspiration. Pericardium There is no pericardial effusion. Other Information Study Quality: Fair Conclusion Normal biventricular systolic function (LVEF 50-55%). Mild MR, mild TR. No obvious evidence of vegetations on TTE (note that TTE does not entirely rule out endocarditis, especially for vegetations < 1.0 cm in size). No pericardial effusion. Electronically signed by : Sayra Barry MD 01/11/2025 12:12:30
--- NOTE | 2025-01-11 06:00 | US_ITS ---
FINAL REPORT TECHNIQUE: Multiple transverse and longitudinal images CLINICAL HISTORY: Persistent fever, transaminitis COMPARISON: CT abdomen and pelvis 01/09/2025 FINDINGS: The gallbladder shows no wall thickening, distention or stone disease. No biliary ductal dilatation is appreciated. No fluid collections are seen. There is fatty change of the liver. Right kidney demonstrates mild right hydronephrosis. Pancreas is largely obscured. IMPRESSION: Fatty change of the liver. No evidence of biliary obstruction. Mild right hydronephrosis, appears more pronounced than recent CT scan. Reviewed, Interpreted and Dictated by Carla Mckeon MD Transcribed by Shellie Hathaway Authenticated and [facility]
[2025-01-11 07:36] LABS: Hematocrit 37.4 % (42.0-52.0); Hemoglobin 13.0 g/dL (14.1-18.0); Immature Granulocytes % 0.4 %; Mean Corpuscular HGB Conc 34.8 g/dL (31.8-35.4); Mean Corpuscular Hemoglobin 28.3 pg (27.0-31.2); Mean Corpuscular Volume 81.3 fl (80-94); Nucleated Red Blood Cells % 0 %; Platelet Count 173 K/mm3 (142-424); Red Blood Count 4.60 M/mm3 (4.60-6.20); Red Cell Distribution Width-SD 36.1 fL; White Blood Count 9.8 K/mm3 (4.8-10.8)
[2025-01-11 07:46] LABS: Alanine Aminotransferase 70 U/L (12-78); Albumin Level 3.4 g/dl (3.5-5.0); Albumin/Globulin Ratio 1.2 (1.1-1.8); Alkaline Phosphatase 100 U/L (38-126); Anion Gap 17.7 mEq/L (5-15); Aspartate Amino Transferase 49 U/L (17-59); Bilirubin,Total 1.0 mg/dl (0.2-1.3); Blood Urea Nitrogen 9 mg/dl (9-20); Calcium 9.1 mg/dl (8.4-10.2); Carbon Dioxide 23 mmol/L (22.0-30.0); Chloride 97 mmol/L (98-107); Creatinine Clearance Estimated 143 mL/min (50-200); Creatinine,Serum 1.10 mg/dl (0.66-1.25); Estimated Glomerular Filt Rate 75 ml/min (>60); GFR (African American) 91 ML/MIN (>60); Globulin 2.8 g/dL (1.3-3.2); Glucose 171 mg/dl (74-100); Potassium 3.7 mmoL/L (3.5-5.1); Sodium 134 mmol/L (136-145); Total Protein,Serum 6.2 g/dl (6.3-8.2)
[2025-01-11 07:56] LABS: Magnesium 1.4 mg/dl (1.6-2.3)
[2025-01-11 08:00] VITALS: BP 114/56; PULSE 75; RESP 16; TEMP 36.8; O2SAT 96
--- NOTE | 2025-01-11 08:13 | EXP.PHA.CONS ---
Pharmacy Consult Date: 01/11/25 Time: 08:13 Referring provider: DR. PATHAK Reason for Consult:: VANCOMYCIN DOSING Allergies Allergy/AdvReac Type Severity Reaction Status Date / Time No Known Allergies Allergy Verified 05/31/23 12:11 Home Medications ?Medication ?Instructions ?Recorded ?Confirmed ?Type metformin 500 mg tablet 500 mg PO BID 30 days #60 tabs 09/16/23 01/10/25 Rx New Prescriptions to Start Prescriptions: Height: 1.88 m Weight: 110.733 kg Laboratory Results:: Laboratory Results - last 24 hr 01/10/25 07:00: Monoscreen Negative 01/10/25 07:02: C-Reactive Protein 219.1 H 01/10/25 09:06: Urine Opiates Screen Negative, Urine Methadone Screen Negative, Ur Barbituates Screen Negative, Ur Phencyclidine Scrn Negative, Ur Amphetamines Screen Negative, U Benzodiazepines Scrn Negative, Urine Cocaine Screen Negative, U Marijuana (THC) Screen Negative 01/10/25 12:08: POC Glucose 184 H 01/10/25 16:40: POC Glucose 150 H 01/10/25 21:19: POC Glucose 240 H 01/11/25 07:03: WBC 9.8, RBC 4.60, Hgb 13.0 L, Hct 37.4 L, MCV 81.3, MCH 28.3, MCHC 34.8, RDW 12.2, Plt Count 173, MPV 9.3, Neut % (Auto) 74.6, Lymph % (Auto) 13.3, [place] % (Auto) 11.5 H, Eos % (Auto) 0.0 L, Baso % (Auto) 0.2, Neut # (Auto) 7.3, Lymph # (Auto) 1.3, [place] # (Auto) 1.1 H, Eos # (Auto) 0.0, Baso # (Auto) 0.0, ESR 68 H, Sodium 134 L, Potassium 3.7, Chloride 97 L, Carbon Dioxide 23, Anion Gap 17.7 H, BUN 9, Creatinine 1.10, Estimated Creat Clear 143, Estimated GFR 75, Est GFR ( Amer) 91, Glucose 171 H, Calcium 9.1, Magnesium 1.4 L, Total Bilirubin 1.0, AST 49, ALT 70, Alkaline Phosphatase 100, Total Protein 6.2 L, Albumin 3.4 L, Globulin 2.8, Albumin/Globulin Ratio 1.2 Medical History: Medical History (Updated 01/09/25 @ 13:25 by Tamika Cordova DO) Generalized anxiety disorder History of kidney stones Hypertension Assessment and Plan Assessment and plan all Dx Assessment and Plan for all problems:: Pharmacokinetic dosing service Objective: Patient: Floor: Age: 39 yo Serum creatinine: 1.10 mg/dL Height: 74.0 Inches Weight (kg): 110.7 Assessment: IBW (kg): 82.20 Dosing wt(kg): 110.7 Estimated Creatinine clearance (ml/min): 105.9 CRCL method: Cockcroft and Gault using ibw(default). Drug selected: Vancomycin Loading dose (mg): Vd (liters): 88.6 (factor used: 0.8 L/kg) Sebastian (hr-1): 0.092 Half life (hrs): 7.53 CLvanco=?? 8.151 L/hr Recommended dose: 2250 mg Interval: 12 hrs Infusion time (hrs): 2.0 Predicted peak (mcg/mL): 34.7 Predicted trough (mcg/mL): 13.83 Total body weight is being used for vancomycin dosing. Recommendations: Give Vancomycin 2250 mg q 12 hrs with an expected Cpeak of 34.7 mcg/ml and an expected Ctrough of 13.83 mcg/ml AUC 0-24 /JACE Data: JACE 0.5 mcg/mL:?? AUC/JACE:? 1104.2 JACE 1.0 mcg/mL:?? AUC/JACE:? 552.1 --------- JACE 1.5 mcg/mL:?? AUC/JACE:? 368.1 JACE 2.0 mcg/mL:?? AUC/JACE:? 276.0 Thank you for the consult, will continue to follow. -SUSAN FELIZ, RICHD
--- NOTE | 2025-01-11 08:20 | PC.NURSE ---
left floor @7:25 to radiology returned @ 8:10
[2025-01-11] MEDS: DOXYCYCLINE HYCLATE 100 MG in 0.9 % SODIUM CHLORIDE 250 ML 166.667 MG IV (08:38)
[2025-01-11] MEDS: METFORMIN 500MG TABLET 500 MG PO (08:38)
[2025-01-11 12:00] VITALS: BP 125/70; PULSE 85; RESP 14; TEMP 36.8; O2SAT 97
--- NOTE | 2025-01-11 12:29 | EXP.PN ---
Subjective *Date: 01/11/25 *Time: 12:29 Interval history: Patient feels much better today, send starting empiric treatment of meningitis. Follow-up CSF results. Exam Data for Last 24 hours Vital signs and Labs for Last 24 Hours: Temp Pulse Resp BP Pulse Ox O2 Del Method O2 Flow Rate 98.2 F 75 16 114/56 L 96 Room Air 2 01/11/25 08:00 01/11/25 08:00 01/11/25 08:00 01/11/25 08:00 01/11/25 08:00 01/11/25 09:00 01/11/25 08:00 Laboratory Results - last 24 hr 01/10/25 07:00: Monoscreen Negative 01/10/25 07:02: C-Reactive Protein 219.1 H 01/10/25 16:40: POC Glucose 150 H 01/10/25 21:19: POC Glucose 240 H 01/11/25 07:03: WBC 9.8, RBC 4.60, Hgb 13.0 L, Hct 37.4 L, MCV 81.3, MCH 28.3, MCHC 34.8, RDW 12.2, Plt Count 173, MPV 9.3, Neut % (Auto) 74.6, Lymph % (Auto) 13.3, [place] % (Auto) 11.5 H, Eos % (Auto) 0.0 L, Baso % (Auto) 0.2, Neut # (Auto) 7.3, Lymph # (Auto) 1.3, [place] # (Auto) 1.1 H, Eos # (Auto) 0.0, Baso # (Auto) 0.0, ESR 68 H, Sodium 134 L, Potassium 3.7, Chloride 97 L, Carbon Dioxide 23, Anion Gap 17.7 H, BUN 9, Creatinine 1.10, Estimated Creat Clear 143, Estimated GFR 75, Est GFR ( Amer) 91, Glucose 171 H, Calcium 9.1, Magnesium 1.4 L, Total Bilirubin 1.0, AST 49, ALT 70, Alkaline Phosphatase 100, Total Protein 6.2 L, Albumin 3.4 L, Globulin 2.8, Albumin/Globulin Ratio 1.2 I & O for Last 24 hours: Intake & Output 01/08/25 01/09/25 01/10/25 01/11/25 23:59 23:59 23:59 23:59 Intake Total 480 / 660 4002 / 4002 250 / 250 Output Total 400 / 400 1550 / 1550 900 / 900 Balance 80 / 260 2452 / 2452 -650 / -650 Weight 105.772 kg 108.012 kg 110.733 kg Microbiology Reports for the Last 24 Hours: Microbiology 01/09/25 10:39 Blood Blood Culture - Preliminary NO GROWTH AFTER 48 HOURS 01/09/25 10:30 Blood Blood Culture - Preliminary NO GROWTH AFTER 48 HOURS Constitutional Constitutional: no acute distress *Routine HEENT Exam Head: Present normocephalic Eye: Present EOMI and PERRL ENT: Present mucous membranes moist *Routine Neck Exam Neck: Present supple; Absent lymphadenopathy *Routine Respiratory Exam Respiratory: Present CTA bilaterally *Routine Cardiovascular Exam Cardiovascular: Present RRR *Routine Abdominal Exam Abdominal: Present soft and normoactive bowel sounds; Absent tenderness *Routine Extremities Exam Extremities: Absent cyanosis, clubbing or edema *Routine Skin Exam Skin: Present warm; Absent rash *Routine Neurological Exam Neurological: Present alert and oriented X3 Assessment and Plan *Assessment and plan (1) Hyperbilirubinemia: Status: Acute Category: Medical Code(s): E80.6 - Other disorders of bilirubin metabolism (2) Transaminitis: Status: Acute Category: Medical Code(s): R74.01 - Elevation of levels of liver transaminase levels (3) Fever: Status: Acute Category: Medical Code(s): R50.9 - Fever, unspecified Plan 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 Patient was very fatigued after this exercise, went home and slept. Apparently woke up with a fever of 104 Fahrenheit, and has been having persistent fevers around 104 Fahrenheit since then. Fever this morning was 103.8 Fahrenheit per significant other at bedside. Denies fever/chills, shortness of breath, abdominal pain, constipation/diarrhea, urinary symptoms. No recent sick contacts. No recent medication changes, recreational drug use. No skin lesions. Patient was in good health prior to 2 days. Workup in the ED significant for WBC 17.3 with neutrophilic shift, AGAP 17.1, slight transaminitis. No fevers in the ED. Case discussed by ED provider and, given patient has had persistent fevers with leukocytosis, decision was made to admit patient for further evaluation and management and to clear blood cultures. #Fever of unknown origin #SIRS #Leukocytosis #Transaminitis #Suspect meningitis ? 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 Initial WBC 17.3 with neutrophilic shift. Initial workup unremarkable for infection. Respiratory panel normal. ? CK surprisingly normal. Patient did initially have slight transaminitis, elevated AST/ALT/ALP/total bilirubin 62/85/138/2.3. Resolved since. No abdominal tenderness. ? Upon further inquiry, patient admits posterior neck pain with stiffness, headache, pain behind his eyes and ears yesterday. Denies chest pain, shortness of breath, abdominal pain, urinary symptoms. ? Blood cultures NGTD 24 hours. Respiratory panel, monotest normal. No skin lesions. UA, CT abdomen/pelvis, CXR, CT chest unremarkable. Procalcitonin normal. ? ECHO unremarkable for myocarditis/vegetation, RUQ ultrasound shows fatty liver disease and mild right hydronephrosis. ? CRP 219.1, ESR 68. Follow-up CRP and ESR in the morning. ? Switched to empiric treatment of meningitis with vancomycin, ceftriaxone 2 g twice daily. Patient feels much better since, though fevers also improving. ? Anesthesiology performed LP, follow-up CSF results. ? Follow-up hepatitis panel. #Type 2 diabetes ? Hemoglobin A1c 8.5%. ? Continue home metformin. ? LDSSI, ACHS glucose checks. Full code DVT prophylaxis: Lovenox 40 mg
[2025-01-11] MEDS: MAGNESIUM SULFATE IN WATER 2 GM/50 ML PIGGYBACK IV ×3 (12:47→14:11)
[2025-01-11 12:58] LABS: POC Glucose,Bedside 149 (70-110)
[2025-01-11 13:30] LABS: Glucose,CSF 93 mg/dl (40-70)
[2025-01-11 13:51] LABS: Tube Number: Tube 1
[2025-01-11] MEDS: VANCOMYCIN HCL 2,250 MG in 0.9 % SODIUM CHLORIDE 250 ML 125 MG IV (14:11)
[2025-01-11 14:21] LABS: Volume,CSF 2 mL
[2025-01-11 14:22] LABS: Red Blood Cell,CSF 0 cells/uL (0); Tube Number: Tube 3; White Blood Cell,CSF 1 cells/uL (0-5)
[2025-01-11 15:24] LABS: Polynuclear WBCs,CSF 0 %
[2025-01-11 15:25] LABS: Mononuclear WBCs,CSF 0 %
--- NOTE | 2025-01-11 16:44 | P.DS_ITS ---
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 Patient was very fatigued after this exercise, went home and slept. Apparently woke up with a fever of 104 Fahrenheit, and has been having persistent fevers around 104 Fahrenheit since then. Fever this morning was 103.8 Fahrenheit per significant other at bedside. Denies fever/chills, shortness of breath, abdominal pain, constipation/diarrhea, urinary symptoms. No recent sick contacts. No recent medication changes, recreational drug use. No skin lesions. Patient was in good health prior to 2 days. Workup in the ED significant for WBC 17.3 with neutrophilic shift, AGAP 17.1, slight transaminitis. No fevers in the ED. Case discussed by ED provider and, given patient has had persistent fevers with leukocytosis, decision was made to admit patient for further evaluation and management and to clear blood cultures. 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 Patient was very fatigued after this exercise, went home and slept. Apparently woke up with a fever of 104 Fahrenheit, and has been having persistent fevers around 104 Fahrenheit since then. Fever this morning was 103.8 Fahrenheit per significant other at bedside. Denies fever/chills, shortness of breath, abdominal pain, constipation/diarrhea, urinary symptoms. No recent sick contacts. No recent medication changes, recreational drug use. No skin lesions. Patient was in good health prior to 2 days. Workup in the ED significant for WBC 17.3 with neutrophilic shift, AGAP 17.1, slight transaminitis. No fevers in the ED. Case discussed by ED provider and, given patient has had persistent fevers with leukocytosis, decision was made to admit patient for further evaluation and management and to clear blood cultures. #Fever of unknown origin #SIRS #Leukocytosis #Transaminitis #Suspect meningitis ? 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 Initial WBC 17.3 with neutrophilic shift. Initial workup unremarkable for infection. Respiratory panel normal. ? CK surprisingly normal. Patient did initially have slight transaminitis, elevated AST/ALT/ALP/total bilirubin 62/85/138/2.3. Resolved since. No abdominal tenderness. ? Upon further inquiry, patient admits posterior neck pain with stiffness, headache, pain behind his eyes and ears a before discharge. Denies chest pain, shortness of breath, abdominal pain, urinary symptoms. ? LP performed by anesthesiology, CSF results unremarkable. ? Blood cultures NGTD 24 hours. Respiratory panel, monotest, hepatitis panel normal. No skin lesions. UA, CT abdomen/pelvis, CXR, CT chest unremarkable. Procalcitonin normal. ? ECHO unremarkable for myocarditis/vegetation, RUQ ultrasound shows fatty liver disease and mild right hydronephrosis. ? Patient continued to have persistent fevers of around 103 Fahrenheit during admission which eventually improved with Dewey hugger and aggressive treatment with analgesics. During this course, vancomycin and ceftriaxone were also started for empiric coverage of meningitis but ultimately CSF results are unremarkable. Patient also feels significantly better on day of discharge. ? Though there is no source of infection at this time, will continue to empirically treat with Bactrim DS twice daily for 5 more days. #Type 2 diabetes ? Hemoglobin A1c 8.5%. Will need close follow-up with PCP for further aggressive management of diabetes. ? Continue home metformin 500 mg twice daily, will not adjust dose as patient is recovering from acute illness. Will follow-up with PCP. Total time spent on discharge: 34 minutes on chart review, counseling, docum entation, and direct care with patient. Exam Data for Last 24 hours Vital signs and Labs for Last 24 Hours: Temp Pulse Resp BP Pulse Ox O2 Del Method O2 Flow Rate 98.3 F 85 14 125/70 97 Room Air 2 01/11/25 12:00 01/11/25 12:00 01/11/25 12:00 01/11/25 12:00 01/11/25 12:00 01/11/25 15:00 01/11/25 08:00 Laboratory Results - last 24 hr 01/09/25 10:15: Hepatitis A IgM Ab Negative, Hep Bs Antigen Negative, Hep B Core IgM Ab Negative, Hepatitis C Antibody Non reactive, HCV RNA PCR Test Info Comment 01/10/25 07:10: ADRIENNE Comment Comment, LITZY-1 Antibody <0.2, SS-A Antibody <0.2, SS- B Antibody <0.2, Sm (Snider) Antibody <0.2, LACE STRIPPER Antibody <0.2, Scl-70 Scleroderma Ab <0.2, Double Strand DNA Ab 1, Chromatin Antibody <0.2, Centromere B Antibody <0.2 01/10/25 16:40: POC Glucose 150 H 01/10/25 21:19: POC Glucose 240 H 01/11/25 07:03: WBC 9.8, RBC 4.60, Hgb 13.0 L, Hct 37.4 L, MCV 81.3, MCH 28.3, MCHC 34.8, RDW 12.2, Plt Count 173, MPV 9.3, Neut % (Auto) 74.6, Lymph % (Auto) 13.3, [place] % (Auto) 11.5 H, Eos % (Auto) 0.0 L, Baso % (Auto) 0.2, Neut # (Auto) 7.3, Lymph # (Auto) 1.3, [place] # (Auto) 1.1 H, Eos # (Auto) 0.0, Baso # (Auto) 0.0, ESR 68 H, Sodium 134 L, Potassium 3.7, Chloride 97 L, Carbon Dioxide 23, Anion Gap 17.7 H, BUN 9, Creatinine 1.10, Estimated Creat Clear 143, Estimated GFR 75, Est GFR ( Amer) 91, Glucose 171 H, Calcium 9.1, Magnesium 1.4 L, Total Bilirubin 1.0, AST 49, ALT 70, Alkaline Phosphatase 100, Total Protein 6.2 L, Albumin 3.4 L, Globulin 2.8, Albumin/Globulin Ratio 1.2 01/11/25 09:45: CSF Volume 2, CSF Appearance Clear, CSF WBC 1, CSF RBC 0, CSF Mononuclear WBCs % 0, CSF Polynuclear WBCs % 0, CSF Glucose 93 H, CSF Total Protein 47.0 01/11/25 12:45: POC Glucose 149 H I & O for Last 24 hours: Intake & Output 01/08/25 01/09/25 01/10/25 01/11/25 23:59 23:59 23:59 23:59 Intake Total 480 / 660 4002 / 4002 250 / 250 Output Total 400 / 400 1550 / 1550 1400 / 1400 Balance 80 / 260 2452 / 2452 -1150 / -1150 Weight 105.772 kg 108.012 kg 110.733 kg Microbiology Reports for the Last 24 Hours: Microbiology 01/09/25 10:39 Blood Blood Culture - Preliminary NO GROWTH AFTER 48 HOURS 01/09/25 10:30 Blood Blood Culture - Preliminary NO GROWTH AFTER 48 HOURS Constitutional Constitutional: no acute distress *Routine HEENT Exam Head: Present normocephalic Eye: Present EOMI and PERRL ENT: Present mucous membranes moist *Routine Neck Exam Neck: Present supple; Absent lymphadenopathy *Routine Respiratory Exam Respiratory: Present CTA bilaterally *Routine Cardiovascular Exam Cardiovascular: Present RRR *Routine Abdominal Exam Abdominal: Present soft and normoactive bowel sounds; Absent tenderness *Routine Extremities Exam Extremities: Absent cyanosis, clubbing or edema *Routine Skin Exam Skin: Present warm; Absent rash *Routine Neurological Exam Neurological: Present alert and oriented X3 Results Data Completed and Pending Labs on day of discharge: Labs from last 24 hours 01/11/25 01/11/25 01/11/25 12:45 09:45 07:03 WBC 9.8 RBC 4.60 Hgb 13.0 L Hct 37.4 L MCV 81.3 MCH 28.3 MCHC 34.8 RDW 12.2 Plt Count 173 MPV 9.3 Neut % (Auto) 74.6 Lymph % (Auto) 13.3 [place] % (Auto) 11.5 H Eos % (Auto) 0.0 L Baso % (Auto) 0.2 Neut # (Auto) 7.3 Lymph # (Auto) 1.3 [place] # (Auto) 1.1 H Eos # (Auto) 0.0 Baso # (Auto) 0.0 ESR 68 H Sodium 134 L Potassium 3.7 Chloride 97 L Carbon Dioxide 23 Anion Gap 17.7 H BUN 9 Creatinine 1.10 Estimated Creat Clear 143 Estimated GFR 75 Est GFR ( Amer) 91 Glucose 171 H POC Glucose 149 H Calcium 9.1 Magnesium 1.4 L Total Bilirubin 1.0 AST 49 ALT 70 Alkaline Phosphatase 100 Total Protein 6.2 L Albumin 3.4 L Globulin 2.8 Albumin/Globulin Ratio 1.2 CSF Volume 2 CSF Appearance Clear CSF WBC 1 CSF RBC 0 CSF Mononuclear WBCs % 0 CSF Polynuclear WBCs % 0 CSF Glucose 93 H CSF Total Protein 47.0 ADRIENNE Comment LITZY-1 Antibody SS-A Antibody SS-B Antibody Sm (Snider) Antibody LACE STRIPPER Antibody Scl-70 Scleroderma Ab Double Strand DNA Ab Chromatin Antibody Centromere B Antibody Hepatitis A IgM Ab Hep Bs Antigen Hep B Core IgM Ab Hepatitis C Antibody HCV RNA PCR Test Info 01/10/25 01/10/25 01/10/25 21:19 16:40 07:10 WBC RBC Hgb Hct MCV MCH MCHC RDW Plt Count MPV Neut % (Auto) Lymph % (Auto) [place] % (Auto) Eos % (Auto) Baso % (Auto) Neut # (Auto) Lymph # (Auto) [place] # (Auto) Eos # (Auto) Baso # (Auto) ESR Sodium Potassium Chloride Carbon Dioxide Anion Gap BUN Creatinine Estimated Creat Clear Estimated GFR Est GFR ( Amer) Glucose POC Glucose 240 H 150 H Calcium Magnesium Total Bilirubin AST ALT Alkaline Phosphatase Total Protein Albumin Globulin Albumin/Globulin Ratio CSF Volume CSF Appearance CSF WBC CSF RBC CSF Mononuclear WBCs % CSF Polynuclear WBCs % CSF Glucose CSF Total Protein ADRIENNE Comment Comment LITZY-1 Antibody <0.2 SS-A Antibody <0.2 SS-B Antibody <0.2 Sm (Snider) Antibody <0.2 LACE STRIPPER Antibody <0.2 Scl-70 Scleroderma Ab <0.2 Double Strand DNA Ab 1 Chromatin Antibody <0.2 Centromere B Antibody <0.2 Hepatitis A IgM Ab Hep Bs Antigen Hep B Core IgM Ab Hepatitis C Antibody HCV RNA PCR Test Info 01/09/25 10:15 WBC RBC Hgb Hct MCV MCH MCHC RDW Plt Count MPV Neut % (Auto) Lymph % (Auto) [place] % (Auto) Eos % (Auto) Baso % (Auto) Neut # (Auto) Lymph # (Auto) [place] # (Auto) Eos # (Auto) Baso # (Auto) ESR Sodium Potassium Chloride Carbon Dioxide Anion Gap BUN Creatinine Estimated Creat Clear Estimated GFR Est GFR ( Amer) Glucose POC Glucose Calcium Magnesium Total Bilirubin AST ALT Alkaline Phosphatase Total Protein Albumin Globulin Albumin/Globulin Ratio CSF Volume CSF Appearance CSF WBC CSF RBC CSF Mononuclear WBCs % CSF Polynuclear WBCs % CSF Glucose CSF Total Protein ADRIENNE Comment LITZY-1 Antibody SS-A Antibody SS-B Antibody Sm (Snider) Antibody LACE STRIPPER Antibody Scl-70 Scleroderma Ab Double Strand DNA Ab Chromatin Antibody Centromere B Antibody Hepatitis A IgM Ab Negative Hep Bs Antigen Negative Hep B Core IgM Ab Negative Hepatitis C Antibody Non reactive HCV RNA PCR Test Info Comment Preliminary micro results at discharge 01/09/25 10:39 Blood Culture - Preliminary Blood NO GROWTH AFTER 48 HOURS 01/09/25 10:30 Blood Culture - Preliminary Blood NO GROWTH AFTER 48 HOURS DS: Diagnosis Discharge Diagnosis (1) Hyperbilirubinemia: Status: Acute Code(s): E80.6 - Other disorders of bilirubin metabolism (2) Transaminitis: Status: Acute Code(s): R74.01 - Elevation of levels of liver transaminase levels (3) Fever: Status: Acute Code(s): R50.9 - Fever, unspecified Meds Home Medications and Allergies Home Medications ?Medication ?Instructions ?Recorded ?Confirmed ?Type metformin 500 mg tablet 500 mg PO BID 30 days #60 ta bs 09/16/23 01/10/25 Rx sulfamethoxazole 800 1 tab PO BID 5 days #10 tabs 01/11/25 Rx mg-trimethoprim 160 mg tablet (Bactrim DS) New Prescriptions to Start Prescriptions: sulfamethoxazole-trimethoprim [Bactrim DS] Keenan Moctezuma Allergies Allergy/AdvReac Type Severity Reaction Status Date / Time No Known Allergies Allergy Verified 05/31/23 12:11 Discharge Plan Disposition Patient Disposition: Home, Self-Care Condition: Fair Discharge Order Discharge Orders: Discharge Order (Routine); Ordered 01/11/25 Ordered By: Keenan Moctezuma Follow up Plan Follow up with: Asif Newman MD [Primary Care Provider, Medical] - 1 week Referral Note: please call for appointment Prescriptions/Medication Reconciliation: New sulfamethoxazole-trimethoprim [Bactrim DS] 800-160 mg tablet 1 tab PO BID 5 Days Qty: 10 0RF Continued metformin 500 mg tablet 500 mg PO BID 30 Days Qty: 60 0RF Problem Reconciliation Problems Reviewed?: Yes Patient Discharge Instructions Patient Instructions: DI for Fever (Symptom) -- Adult, Stop Light Infection Print Language: Azeri Providers Primary Care Provider: Asif Newman Admit Provider: Keenan Moctezuma Attending Provider: Keenan Moctezuma
[2025-01-11 16:48] LABS: POC Glucose,Bedside 139 (70-110)
[2025-01-11 19:00] LABS: C-Reactive Protein 227.4 mg/L (0-4)
--- NOTE | 2025-01-12 10:49 | SW/DCPLANNER ---
Spoke with patient, did case picker new medication, was made aware of making a follow up appointment with primary care provider. did ask about going back to work. no concerns.
[2025-01-12 12:36] LABS: POC Glucose,Bedside 173 (70-110)
== END 2025-01-11 17:22 | disposition home or self-care (01) | DRG 872 ==
LOC: ER 13:25 → 2ND 14:48
PROVIDERS: Nurse Practitioner Family; Admitting Provider Student in an Organized Health Care Education/Training Program; Emergency Provider Emergency Medicine; PCP Family Medicine; Visit Provider Student in an Organized Health Care Education/Training Program
DX: A41.9 Sepsis, unspecified organism (principal); N13.30 Unspecified hydronephrosis; E11.9 Type 2 diabetes mellitus without complications; R74.01 Elevation of levels of liver transaminase levels; E80.6 Other disorders of bilirubin metabolism; I10 Essential (primary) hypertension; K76.0 Fatty (change of) liver, not elsewhere classified; Z79.84 Long term (current) use of oral hypoglycemic drugs; Z79.899 Other long term (current) drug therapy; Z87.891 Personal history of nicotine dependence
CPT/HCPCS: 36415; 71046; 71250; 74177; 76705; 80053; 80074; 80307; 81001; 82009; 82550; 82803; 82945; 82962; 82977; 83036; 83605; 83690; 83735; 84145; 84155; 84436; 84443; 84484; 85025; 85651; 86140; 86225; 86235; 86318; 86803; 87040; 87070; 87205; 87389; 87529; 87633; 87636; 89051; 93005; 93306; J0131; J0696; J1650; J1885; J2405; J2543; J3370; J3475; J7030; J7050; J7120; Q9967